=== PATIENT | female | born 1940 | race Caucasian/White ===

== ENCOUNTER 2020-11-06 09:38 | Outpatient (CLI) | payer OTHER, SELFPAY ==
[2020-11-06 17:01] LABS: Abs Immature Grans 0.41 10^3/uL (0.0-0.06); HCT 43.9 % (36.0-46.0); HGB 14.2 g/dL (11.2-15.7); MCH 30.1 pg (27.0-33.0); MCHC 32.3 % (32.0-36.0); Platelet Count 197 10^3/uL (130-400); RBC 4.72 10^6/uL (3.93-5.22); RDW 14.2 % (11.7-14.6); RDW-SD 48.1 fL
[2020-11-06 17:12] LABS: ALT 26 U/L (14-59); AST 15 U/L (15-37); Albumin 3.6 g/dL (3.4-5.0); Alkaline Phosphatase 63 U/L (46-116); Anion Gap 10.6 mmol/L (3-11); BUN 21 mg/dL (7-18); Bilirubin, Total 0.5 mg/dL (0.2-1.0); CO2 26.4 mmol/L (21.0-32.0); CREATININE 1.2 mg/dL (0.55-1.02); Calcium 9.2 mg/dL (8.5-10.1); Chloride 103 mmol/L (98-107); Estimated GFR 43.45 (mL/min/1.73m2); Glucose 169 mg/dL (74-106); Potassium 4.1 mmol/L (3.5-5.1); Sodium 140 mmol/L (136-145); Total Protein 6.7 g/dL (6.4-8.2)
[2020-11-06 17:25] LABS: Absolute Lymphocyte Count 68.79 10^3/uL (1.2-3.4); Absolute Monocyte Count 3.44 10^3/uL (0.1-0.8); Absolute Neutrophil Count 13.76 10^3/uL (1.2-6.7); Bands % 0
[2020-11-06 17:26] LABS: Nucleated RBC 0 %
[2020-11-06 17:35] LABS: WBC 85.99 10^3/uL (4.4-10.8)
[2020-11-06 17:36] LABS: Diff Comment Manual Differential; RBC Morphology Normal
[2020-11-13 11:20] LABS: DPYD Phenotype Normal metabolizer
[2020-11-13 11:23] LABS: Interpretation See Comments
[2020-11-13 11:27] LABS: Method See Comments
[2020-11-13 11:34] LABS: Disclaimer See Comments
== END 2020-11-06 09:39 ==
LOC: LBO 11-25 09:38
PROVIDERS: Visit Provider Internal Medicine Hematology & Oncology
DX: C25.9 Malignant neoplasm of pancreas, unspecified (principal)
CPT/HCPCS: 36415; 80053; 81232; 85025

== ENCOUNTER 2020-11-20 14:42 | Outpatient (REF) | payer OTHER, SELFPAY ==
[2020-11-20 11:01] LABS: HCT 41.4 % (36.0-46.0); HGB 13.3 g/dL (11.2-15.7); MCH 30.5 pg (27.0-33.0); MCHC 32.1 % (32.0-36.0); MPV 11.6 fL (8.0-11.0); Nucleated RBC 0 %; Platelet Count 253 10^3/uL (130-400); RBC 4.36 10^6/uL (3.93-5.22); RDW 14.1 % (11.7-14.6); RDW-SD 48.6 fL
[2020-11-20 11:06] LABS: WBC 97.34 10^3/uL (4.4-10.8)
[2020-11-20 11:10] LABS: ALT 26 U/L (14-59); AST 19 U/L (15-37); Albumin 3.6 g/dL (3.4-5.0); Alkaline Phosphatase 66 U/L (46-116); Anion Gap 8.7 mmol/L (3-11); BUN 18 mg/dL (7-18); Bilirubin, Total 0.4 mg/dL (0.2-1.0); CO2 28.3 mmol/L (21.0-32.0); CREATININE 1.1 mg/dL (0.55-1.02); Calcium 9.1 mg/dL (8.5-10.1); Chloride 103 mmol/L (98-107); Estimated GFR 48.04 (mL/min/1.73m2); Glucose 251 mg/dL (74-106); Potassium 3.6 mmol/L (3.5-5.1); Sodium 140 mmol/L (136-145); Total Protein 6.3 g/dL (6.4-8.2)
[2020-11-20 11:14] LABS: Absolute Lymphocyte Count 85.66 10^3/uL (1.2-3.4); Absolute Monocyte Count 1.95 10^3/uL (0.1-0.8); Absolute Neutrophil Count 9.73 10^3/uL (1.2-6.7)
[2020-11-20 11:15] LABS: Diff Comment Manual Differential; RBC Morphology Normal
--- OUTSIDE RECORDS SUMMARY | 2020-11-20 14:45 | XMS_ITS ---
:1940 Author Care Team Providers Name Role Phone CRISTOFER REYNA MD Primary Care Provider [phone] Allergies Code Code System Name Reaction Severity Status Onset NKDA ? Medications Name Status Start Date Stop Date ? ? acetaminophen 500 mg tablet Active ? Not available Take 2 tablets every 6 hours by oral route. amlodipine 10 mg tablet Completed ? 06/12/19 21 amlodipine 5 mg tablet Completed ? 1 Artificial Tears ([id number]) 1 %-0.2 %-0.2 % eye drops Active ? Not available As needed aspirin 81 mg chewable tablet Active ? No t available Chew 1 tablet every day by oral route. Calcium 500 Active ? Not available 1 tablet daily Fluzone High-Dose [id number] (PF) 180 Completed ? 06/12/2020 mcg/0.5 mL intramuscular syringe lancets 30 gauge Active ? Not available Use once daily to check blood sugars- Uses oneTouch Delica Lantus Solostar U-100 Insulin Active ? No t available start at 8 Units per night and increase by 2 units if the Am BS is >14- 2 days and a row latanoprost 0.005 % eye drops Active ? No t available lisinopril 40 mg tablet Active ? Not avai lable metoprolol succinate ER 25 mg Completed ? tablet,extended release 24 hr metoprolol succinate ER 50 mg tablet,extended release 24 hr Acti ve ? Not available Take 1 tablet every day by oral route. Miralax 17 gram oral powder packet Active ? Not available Take 1 packet twice a day by oral route. OneTouch Verio test strips Active ? Not a vailable Take 1 strip 3 times a day by miscell. route for 90 days. OneTouch Verio test strips Active ? Not a vailable Use 1 strip to check blood sugar daily oxycodone 5 mg tablet Completed ? 10/15/2020 Take 1 tablet every 8 hours by oral route as needed. Pen Needle 32 gauge x Active ? Not available Use once daily to inject insulin senna-docusate sodium 8.6 mg-50 mg tablet Active ? Not available Take 2 tablets twice a day by oral route. tamoxifen 20 mg tablet Completed ? 8 triamterene 37.5 mg-hydrochlorothiazide Active ? Not available 25 mg tablet vitamin E 200 unit capsule Completed ? 09/03 Take 1 capsule every day by oral route. Problems Name Status Onset Date Source ? Not for Resuscitation Active 09/03/2020 ? B-cell Chronic Lymphocytic Leukemia Active ? History Leukemia Active ? History Pure Hyperglyceridemia Active ? History Obesity Active ? History Thrombocytopenic Disorder Active ? Histor y Glaucoma Active ? History Essential Hypertension Active ? History Hypertensive Disorder Active ? History Diverticula of Intestine Active ? History Chronic Kidney Disease Stage 3 Active ? H istory Benign Mammary Dysplasia Active ? History Cyst of Ovary Active ? History Heart Murmur Active ? History Impaired Fasting Glycemia Active ? Histor y Abnormal Glucose Level Active ? History Active Immunization Active ? History Tear Film Insufficiency of Bilateral Active ? History Eyes Procedure by Method Active ? History Breast Lump Active ? History Procedures Date Name Performed by ? 06/10/2016 Colonoscopy Information not chris wilkerson Notes: 5 year colonoscopy plan due to family hx 10/23/2017 US, Pelvis, Transabdominal + [facility] (Internal) Transvaginal [address] [place] [id number] (Work Place) 04/30/2018 MAMMO, Screening, Tomosynthesis, [facility] Radiology (Internal) Bilateral [address] [place] [id number] (Work Place) 12/13/2018 MAMMO, Screening, Tomosynthesis, [facility] Radiology (Internal) Bilateral [address] [id number] (Work Place) 05/22/2020 CT, Neck, Soft Tissue, W/ Contrast [facility] Radiology (Internal) [address] [id number] (Work Place) 06/01/2020 US, Head + Neck, Soft Tissue [facility] Radiology (Internal) [address] [place] [id number] (Work Place) Results Lab Results Date Name Specimen Result Interpretation Description Value Range Status Address ? 11/17/2020 CMP, Serum or S High g/r 194 mg/dL 74-106 Fin al [place] Plasma mg/dL [facility] [address] ? ? S High Bun 18 mg/dL 7-17 Final [place] mg/dL [facility] ([facility] : [address] ? ? S ? Crea 0.90 0.52-1.04 Final [place] mg/dL mg/dL [facility] ([facility]) : [address] ? ? S ? Ca 9.6 mg/dL 8.4-10.2 Final [place] mg/dL [facility] ([facility]) : [address] ? ? S ? Na 141 137-145 Final [place] mmol/L mmol/L [facility] ([facility]) : [address] ? ? S ? K 3.9 3.5-5.1 Final [place] mmol/L mmol/L [facility] ([facility] : [address] ? ? S ? Cl 99 mmol/L 98-107 Final [place] mmol/L [facility] ([facility] : [address] ? ? S ? Tco2 30.0 22.0-30.0 Final [place] mmol/L mmol/L [facility] ([facility]) : [address] ? ? S ? Tp 6.6 g/dL 6.3-8.2 Final [place] g/dL [facility] ([facility] : [address] ? ? S ? Alb 4.3 g/dL 3.5-5.0 Final [place] g/dL [facility] ([facility] : [address] ? ? S ? Tbil 0.4 mg/dL 0.2-1.3 Final [place] mg/dL [facility] ([facility]) : [address] ? ? S ? Alp 62 U/L 38-126 Final [place] U/L [facility] : [address] ? ? S ? Alt 20 U/L 9-52 U/L Final [place] (Sgpt) [facility] L [facility] (Internal) : [address] ? ? S High Ast 85 U/L 14-36 U/L Final [place] (Sgot) [facility] (Internal) : [address] 08/31/2020 HbA1C BLD High Ha1C 7.3 % 4.0-6.0 % Final [facility] (Hemoglobin Count ry a1C), Blood Hospi per[facility] Lab (Internal) : [address] 05/22/2020 CBC W/ Auto BLD CRITICAL Wbc 25.9 5.0-10.0 Daria [facility] Diff HIGH 10*3/uL 10*3/uL [facility] (Internal) : [address] ? ? BLD ? Rbc 5.16 4.10-5.30 Final [place] 10*6/uL 10*6/uL [facility] L [facility] (Internal) : [address] ? ? BLD High Hgb 16.1 g/dL 12.0-16.0 Final Nort h g/dL [facility] L ab (Internal) : [address] ? ? BLD High Hct 48.1 % 37.0-47.0 Final [facility] L ab (Internal) : [address] ? ? BLD ? Mcv 93.2 fL 80.0-96.0 Final [facility] L [facility] (Internal) : [address] ? ? BLD ? Mch 31.2 pg 26.0-32.0 Final [facility] L ab (Internal) : [address] ? ? BLD ? Mchc 33.5 g/dL 31.0-35.0 Final Nort h g/dL [facility] L [facility] (Internal) : [address] ? ? BLD ? Rdw 13.0 % 11.5-14.5 Final [facility] L ab (Internal) : [address] ? ? BLD ? Plt 134 130-450 Final [place] 10*3/uL 10*3/uL [facility] (Internal) : [address] 05/22/2020 CMP, Serum or S High g/r 140 mg/dL 74-106 Fin al [place] Plasma mg/dL [facility] : [address] ? ? S High Bun 22 mg/dL 7-17 Final [place] mg/dL [facility] ([facility]) : [address] ? ? S High Crea 1.10 0.52-1.04 Final [place] mg/dL mg/dL [facility] (Internal) : [address] ? ? S ? Ca 9.6 mg/dL 8.4-10.2 Final [place] mg/dL [facility] ([facility]) : [address] ? ? S ? Na 138 137-145 Final [place] mmol/L mmol/L [facility] ([facility]) : [address] ? ? S ? K 3.9 3.5-5.1 Final [place] mmol/L mmol/L [facility] ([facility]) : [address] ? ? S ? Cl 100 98-107 Final [place] mmol/L mmol/L [facility] (Internal) : [address] ? ? S ? Tco2 30.0 22.0-30.0 Final [place] mmol/L mmol/L [facility] (Internal) : [address] ? ? S ? Tp 6.6 g/dL 6.3-8.2 Final [place] g/dL [facility] ([facility] : [address] ? ? S ? Alb 4.4 g/dL 3.5-5.0 Final [place] g/dL [facility] ([facility] : [address] ? ? S ? Tbil 0.3 mg/dL 0.2-1.3 Final [place] mg/dL [facility] ([facility] : [address] ? ? S ? Alp 47 U/L 38-126 Final [place] U/L [facility] : [address] ? ? S ? Alt 20 U/L 9-52 U/L Final [place] (Sgpt) [facility] : [address] ? ? S ? Ast 30 U/L 14-36 U/L Final [place] (Sgot) [facility] L ab (Internal) : [address] 05/22/2020 Lipid Panel, S High Chol 206 mg/dL 50-200 Daria l [place] Serum mg/dL [facility] L [facility] (Internal) : [address] ? ? S High Trig 303 mg/dL 10-150 Final [place] mg/dL [facility] L ab (Internal) : [address] ? ? S Low Hdl 39 mg/dL 40-60 Final [place] mg/dL [facility] (Internal) : [address] ? ? S ? Ldl 106 mg/dL 0-130 Final [place] mg/dL [facility] L [facility] (Internal) : [address] 05/22/2020 Ldh, Serum or S ? Ldh 517 U/L 313-618 Daria l [place] Plasma U/L [facility] L ab (Internal) : [address] 05/22/2020 TSH, Serum or S ? Tsh 2.21 0.47-4.68 Fin al [place] Plasma u[IU]/mL u[IU]/mL [facility] L ab (Internal) : [address] 05/22/2020 Differential, BLD Low Polys 19 % 40-75 % Final [facility], Blood [facility] L ab (Internal) : [address] ? ? BLD ? Bands 0 % 0-5 % Final [facility] L ab (Internal) : [address] ? ? BLD High Lymphs 70 % 20-50 % Final [facility] L ab (Internal) : [address] ? ? BLD ? [place] 5 % 2-10 % Final [facility] L [facility] (Internal) : [address] ? ? BLD ? Eos 3 % 0-6 % Final [facility] L [facility] (Internal) : [address] ? ? BLD ? Baso 1 % 0-1 % Final [facility] L [facility] (Internal) : [address] ? ? BLD ? Atyp 1 % ? Final [place] Lymph [facility] (Internal) : [address] ? ? BLD High Young 1 % 0-0 % Final [place] Forms [facility] L ab (Internal) : [address] ? ? BLD ABNORMAL Plts, low adequate Final [place] Est. [facility] L [facility] (Internal) : [address] ? ? BLD ? RBC normal normal Final [place] Morphology [facility] L ab (Internal) : [address] 05/22/2020 Neutrophil BLD ? Anc-manua 4.92 ? Final [place] Count, l 10*3/uL [facility] Lab (Anc), Blood (Int ernal): [address] 05/22/2020 Nlr-manual BLD ? Nlr - 0.27 0.00-3.20 Final [place] Manual [facility] L [facility] (Internal) : [address] 01/02/2020 Lipid Panel, S High Chol 217 mg/dL 50-200 Daria l [place] Serum mg/dL [facility] (Internal) : [address] ? ? S High Trig 254 mg/dL 10-150 Final [place] mg/dL [facility] L ab (Internal) : [address] ? ? S ? Hdl 43 mg/dL 40-60 Final [place] mg/dL [facility] (Internal) : [address] ? ? S ? Ldl 123 mg/dL 0-130 Final [place] mg/dL [facility] (Internal) : [address] 01/02/2020 CMP, Serum or S High g/r 154 mg/dL 74-106 Fin al [place] Plasma mg/dL [facility] (Internal) : [address] ? ? S High Bun 21 mg/dL 7-17 Final [place] mg/dL [facility] (Internal) : [address] ? ? S ? Crea 1.00 0.52-1.04 Final [place] mg/dL mg/dL [facility] (Internal) : [address] ? ? S ? Ca 9.7 mg/dL 8.4-10.2 Final [place] mg/dL [facility] L ab (Internal) : [address] ? ? S ? Na 139 137-145 Final [place] mmol/L mmol/L [facility] ([facility] : [address] ? ? S ? K 4.2 3.5-5.1 Final [place] mmol/L mmol/L [facility] ([facility] : [address] ? ? S ? Cl 101 98-107 Final [place] mmol/L mmol/L [facility] (Internal) : [address] ? ? S ? Tco2 28.0 22.0-30.0 Final [place] mmol/L mmol/L [facility] (Internal) : [address] ? ? S ? Tp 6.7 g/dL 6.3-8.2 Final [place] g/dL [facility] (Internal) : [address] ? ? S ? Alb 4.2 g/dL 3.5-5.0 Final [place] g/dL [facility] (Internal[facility] : [address] ? ? S ? Tbil 0.6 mg/dL 0.2-1.3 Final [place] mg/dL [facility] (Internal) : [address] ? ? S ? Alp 44 U/L 38-126 Final [place] U/L [facility] ([facility] : [address] ? ? S ? Alt 21 U/L 9-52 U/L Final [place] (Sgpt) [facility] (Internal[facility] : [address] ? ? S ? Ast 27 U/L 14-36 U/L Final [place] (Sgot) [facility] (Internal) : [address] 01/02/2020 CBC W/ Auto BLD High Wbc 13.3 5.0-10.0 Final [place] Diff 10*3/uL 10*3/uL [facility] ([facility]) : [address] ? ? BLD High Rbc 5.31 4.10-5.30 Final [place] 10*6/uL 10*6/uL [facility] (Internal) : [address] ? ? BLD High Hgb 16.4 g/dL 12.0-16.0 Final Nort h g/dL [facility] L ab (Internal) : [address] ? ? BLD High Hct 48.4 % 37.0-47.0 Final [facility] L ab (Internal) : [address] ? ? BLD ? Mcv 91.1 fL 80.0-96.0 Final [facility] L ab (Internal) : [address] ? ? BLD ? Mch 30.9 pg 26.0-32.[address] [facility] L ab (Internal) : [address] ? ? BLD ? Mchc 33.9 g/dL 31.0-35.0 Final Nort h g/dL [facility] L ab (Internal) : [address] ? ? BLD ? Rdw 12.4 % 11.5-14.5 Final [facility] L ab (Internal) : [address] ? ? BLD ? Plt 140 130-450 Final [place] 10*3/uL 10*3/uL [facility] L ab (Internal) : [address] 01/02/2020 TSH, Serum or S ? Tsh 2.86 0.47-4.68 Fin [facility] Plasma u[IU]/mL u[IU]/mL [facility] L ab (Internal) : [address] 01/02/2020 Differential, BLD Low Polys 37 % 40-75 % Final [facility] Blood [facility] L ab (Internal) : [address] ? ? BLD ? Bands 0 % 0-5 % Final [facility] L ab (Internal) : [address] ? ? BLD ? Lymphs 46 % 20-50 % Final [facility] L ab (Internal) : [address] ? ? BLD ? [place] 4 % 2-10 % Final [facility] L ab (Internal) : [address] ? ? BLD ? Eos 0 % 0-6 % Final [facility] L ab (Internal) : [address] ? ? BLD High Baso 2 % 0-1 % Final [facility] : [address] ? ? BLD ? Atyp 11 % ? Final [facility] L ab (Internal) : [address] ? ? BLD ? Plts, adequate adequate Final [place] Est. [facility] L ab (Internal) : [address] ? ? BLD ? RBC normal normal Final [facility] L ab (Internal) : [address] ? ? BLD ? Teardrop rare ? Final [facility] L ab (Internal) : [address] 01/02/2020 Neutrophil BLD ? Anc-manua 4.94 ? Final [place] Count, l 10*3/uL [facility] Lab (Anc), Blood (Int ernal): [address] 01/02/2020 Nlr-manual BLD ? Nlr - 0.80 0.00-3.20 Final [place] Manual [facility] L ab (Internal) : [address] 01/22/2019 T4, Free, S - Ft4 0.88 0.78-2.19 Final [place] Serum NG/dL NG/dL [facility] L ab (Internal) : [address] 01/22/2019 TSH, Serum or S - Tsh 2.24 0.47-4.68 Fin al [place] Plasma u[IU]/mL u[IU]/mL [facility] L ab (Internal) : [address] 01/22/2019 Ldh, Serum or S - Ldh 482 U/L 313-618 Daria l [place] Plasma U/L [facility] L ab (Internal) : [address] 01/22/2019 CMP, Serum or S High g/r 129 mg/dL 74-106 Fin al [place] Plasma mg/dL [facility] L ab (Internal) : [address] ? ? S High Bun 20 mg/dL 7-17 Final [place] mg/dL [facility] L ab (Internal) : [address] ? ? S - Crea 0.90 0.52-1.04 Final [place] mg/dL mg/dL [facility] L ab (Internal) : [address] ? ? S - Ca 9.6 mg/dL 8.4-10.2 Final [place] mg/dL [facility] ([facility] : [address] ? ? S - Na 139 137-145 Final [place] mmol/L mmol/L [facility] (Internal) : [address] ? ? S - K 3.7 3.5-5.1 Final [place] mmol/L mmol/L [facility] (Internal) : [address] ? ? S - Cl 100 98-107 Final [place] mmol/L mmol/L [facility] (Internal) : [address] ? ? S - Tco2 29.0 22.0-30.0 Final [place] mmol/L mmol/L [facility] (Internal) : [address] ? ? S - Tp 6.8 g/dL 6.3-8.2 Final [place] g/dL [facility] (Internal) : [address] ? ? S - Alb 4.2 g/dL 3.5-5.0 Final [place] g/dL [facility] (Internal) : [address] ? ? S - Tbil 0.4 mg/dL 0.2-1.3 Final [place] mg/dL [facility] (Internal) : [address] ? ? S - Alp 52 U/L 38-126 Final [place] U/L [facility] (Internal) : [address] ? ? S - Alt 25 U/L 9-52 U/L Final [place] (Sgpt) [facility] (Internal[facility] : [address] ? ? S - Ast 24 U/L 14-36 U/L Final [place] (Sgot) [facility] (Internal) : [address] 01/22/2019 CBC W/ Auto BLD - Wbc 7.1 5.0-10.0 Final [place] Diff 10*3/uL 10*3/uL [facility] (Internal) : [address] ? ? BLD - Rbc 5.07 4.10-5.30 Final [place] 10*6/uL 10*6/uL [facility] (Internal) : [address] ? ? BLD - Hgb 15.8 g/dL 12.0-16.0 Final Nort h g/dL [facility] L ab (Internal) : [address] ? ? BLD - Hct 45.9 % 37.0-47.0 Final [facility] L ab (Internal) : [address] ? ? BLD - Mcv 90.5 fL 80.0-96.0 Final [facility] L ab (Internal) : [address] ? ? BLD - Mch 31.2 pg 26.0-32.0 Final [place] pg [facility] L ab (Internal) : [address] ? ? BLD - Mchc 34.4 g/dL 31.0-35.0 Final Nort h g/dL [facility] L ab (Internal) : [address] ? ? BLD - Rdw 12.7 % 11.5-14.5 Final [facility] L ab (Internal) : [address] ? ? BLD - Plt 138 130-450 Final [place] 10*3/uL 10*3/uL [facility] (Internal) : [address] ? ? BLD - Anc 3.70 ? Final [place] 10*3/uL [facility] L ab (Internal) : [address] ? ? BLD - Neutro 52.1 % 40.0-75.0 Final [facility] L ab (Internal) : [address] ? ? BLD - Lymph 32.8 % 20.0-50.0 Final [facility] L ab (Internal) : [address] ? ? BLD High [place] 11.3 % 2.0-10.0 Final [facility] L ab (Internal) : [address] ? ? BLD - Eos 1.8 % 1.0-6.0 % Final [facility] L ab (Internal) : [address] ? ? BLD - Baso 0.7 % 0.0-1.0 % Final [facility] L ab (Internal) : [address] ? ? BLD High Ig 1.3 % 0.0-0.9 % Final [facility] (Internal) : [address] 09/18/2018 CMP, Serum or S - g/r 93 mg/dL 74-106 Daria l [place] Plasma mg/dL [facility] : [address] ? ? S - Bun 15 mg/dL 7-17 Final [place] mg/dL [facility] (Internal) : [address] ? ? S - Crea 0.80 0.52-1.04 Final [place] mg/dL mg/dL [facility] (Internal) : [address] ? ? S - Ca 9.7 mg/dL 8.4-10.2 Final [place] mg/dL [facility] L [facility] (Internal) : [address] ? ? S - Na 138 137-145 Final [place] mmol/L mmol/L [facility] (Internal) : [address] ? ? S - K 3.7 3.5-5.1 Final [place] mmol/L mmol/L [facility] (Internal) : [address] ? ? S - Cl 98 mmol/L 98-107 Final [place] mmol/L [facility] L [facility] (Internal) : [address] ? ? S - Tco2 30.0 22.0-30.0 Final [place] mmol/L mmol/L [facility] (Internal) : [address] ? ? S - Tp 6.9 g/dL 6.3-8.2 Final [place] g/dL [facility] (Internal) : [address] ? ? S - Alb 4.3 g/dL 3.5-5.0 Final [place] g/dL [facility] (Internal) : [address] ? ? S - Tbil 0.5 mg/dL 0.2-1.3 Final [place] mg/dL [facility] L [facility] (Internal) : [address] ? ? S - Alp 49 U/L 38-126 Final [place] U/L [facility] (Internal) : [address] ? ? S - Alt 19 U/L 9-52 U/L Final [place] (Sgpt) [facility] (Internal[facility] : [address] ? ? S - Ast 27 U/L 14-36 U/L Final [place] (Sgot) [facility] L [facility] (Internal) : [address] 09/18/2018 CBC W/ Auto BLD - Wbc 7.0 5.0-10.0 Final [place] Diff 10*3/uL 10*3/uL [facility] (Internal) : [address] ? ? BLD - Rbc 5.19 4.10-5.30 Final [place] 10*6/uL 10*6/uL [facility] (Internal) : [address] ? ? BLD High Hgb 16.2 g/dL 12.0-16.0 Final Nort [facility] g/dL [facility] (Internal) : [address] ? ? BLD High Hct 47.2 % 37.0-47.0 Final [facility] L ab (Internal) : [address] gaurav ? ? BLD - Mcv 90.9 fL 80.0-96.0 Final [facility] L ab (Internal) : [address] ? ? BLD - Mch 31.2 pg 26.0-32.0 Final [facility] L ab (Internal) : [address] ? ? BLD - Mchc 34.3 g/dL 31.0-35.0 Final Nort h g/dL [facility] L ab (Internal) : [address] ? ? BLD - Rdw 12.4 % 11.5-14.5 Final [facility] L ab (Internal) : [address] ? ? BLD - Plt 146 130-450 Final [place] 10*3/uL 10*3/uL [facility] L [facility] (Internal) : [address] ? ? BLD - Anc 3.49 ? Final [place] 10*3/uL [facility] L ab (Internal) : [address] ? ? BLD - Neutro 50.3 % 40.0-75.0 Final [place] % [facility] L ab (Internal) : [address] ? ? BLD - Lymph 35.7 % 20.0-50.0 Final [place] % [facility] L ab (Internal) : [address] ? ? BLD High [place] 10.6 % 2.0-10.0 Final [facility] L ab (Internal) : [address] ? ? BLD - Eos 2.0 % 1.0-6.0 % Final [facility] L ab (Internal) : [address] ? ? BLD - Baso 0.7 % 0.0-1.0 % Final [facility] L ab (Internal) : [address] ? ? BLD - Ig 0.7 % 0.0-0.9 % Final [facility] L ab (Internal) : [address] 07/17/2018 Immunoglobuli S Low Igg 224 mg/dL [id number] F inal [place] ns mg/dL [facility] Iga+igg+igm, Hosp ital Lab Quantitative, (In ternal): Serum [address] ? ? S Low Iga 41 mg/dL 85-499 Final [place] mg/dL [facility] L ab (Internal) : [address] ? ? S Low Igm <12 mg/dL 35-242 Final [place] mg/dL [facility] L ab (Internal) : [address] 07/17/2018 Ldh, Serum or S - Ldh 481 U/L 313-618 Daria l [place] Plasma U/L [facility] L ab (Internal) : [address] 07/17/2018 CMP, Serum or S High g/r 138 mg/dL 74-106 Fin al [place] Plasma mg/dL [facility] L ab (Internal) : [address] ? ? S High Bun 21 mg/dL 7-17 Final [place] mg/dL [facility] L ab (Internal) : [address] ? ? S - Crea 0.90 0.52-1.04 Final [place] mg/dL mg/dL [facility] (Internal) : [address] ? ? S - Ca 9.4 mg/dL 8.4-10.2 Final [place] mg/dL [facility] (Internal) : [address] ? ? S - Na 139 137-145 Final [place] mmol/L mmol/L [facility] (Internal) : [address] ? ? S - K 3.9 3.5-5.1 Final [place] mmol/L mmol/L [facility] (Internal) : [address] ? ? S - Cl 100 98-107 Final [place] mmol/L mmol/L [facility] (Internal) : [address] ? ? S - Tco2 30.0 22.0-30.0 Final [place] mmol/L mmol/L [facility] (Internal) : [address] ? ? S - Tp 6.4 g/dL 6.3-8.2 Final [place] g/dL [facility] (Internal) : [address] ? ? S - Alb 4.0 g/dL 3.5-5.0 Final [place] g[facility] : [address] ? ? S - Tbil 0.6 mg/dL 0.2-1.3 Final [place] mg/dL [facility] : [address] ? ? S - Alp 43 U/L 38-126 Final [place] U/L [facility] : [address] ? ? S - Alt 25 U/L 9-52 U/L Final [place] (Sgpt) [facility] ([facility] : [address] ? ? S - Ast 26 U/L 14-36 U/L Final [place] (Sgot) [facility] ([facility] : [address] 07/17/2018 CBC W/ Auto BLD - Wbc 6.2 5.0-10.0 Final [place] Diff 10*3/uL 10*3/uL [facility] ([facility] : [address] ? ? BLD - Rbc 4.88 4.10-5.30 Final [place] 10*6/uL 10*6/uL [facility] L ab (Internal) : [address] ? ? BLD - Hgb 15.4 g/dL 12.0-16.0 Final Nort h g/dL [facility] L [facility] (Internal) : [address] ? ? BLD - Hct 45.4 % 37.0-47.0 Final [facility] L ab (Internal) : [address] ? ? BLD - Mcv 93.0 fL 80.0-96.0 Final [facility] L [facility] (Internal) : [address] ? ? BLD - Mch 31.6 pg 26.0-32.0 Final [facility] L ab (Internal) : [address] ? ? BLD - Mchc 33.9 g/dL 31.0-35.0 Final Nort h g/dL [facility] L [facility] (Internal) : [address] ? ? BLD - Rdw 12.6 % 11.5-14.5 Final [facility] L ab (Internal) : [address] ? ? BLD - Plt 133 130-450 Final [place] 10*3/uL 10*3/uL [facility] L ab (Internal) : [address] ? ? BLD - Anc 3.30 ? Final [place] 10*3/uL [facility] L [facility] (Internal) : [address] ? ? BLD - Neutro 53.5 % 40.0-75.0 Final [facility] L [facility] (Internal) : [address] ? ? BLD - Lymph 30.7 % 20.0-50.0 Final [facility] L [facility] (Internal) : [address] ? ? BLD High [place] 10.9 % 2.0-10.0 Final [facility] L [facility] (Internal) : [address] ? ? BLD - Eos 3.1 % 1.0-6.0 % Final [facility] L ab (Internal) : [address] ? ? BLD - Baso 1.0 % 0.0-1.0 % Final [facility] L ab (Internal) : [address] ? ? BLD - Ig 0.8 % 0.0-0.9 % Final [facility] L [facility] (Internal) : [address] 01/01/2018 Ldh, Serum or S - Ldh 477 U/L 313-618 Daria l [place] Plasma U/L [facility] : [address] 01/01/2018 CMP, Serum or S High g/r 113 mg/dL 74-106 Fin al [place] Plasma mg/dL [facility] ([facility]) : [address] ? ? S High Bun 19 mg/dL 7-17 Final [place] mg/dL [facility] L [facility] (Internal) : [address] ? ? S High Crea 1.20 0.52-1.04 Final [place] mg/dL mg/dL [facility] ([facility] : [address] ? ? S - Ca 9.3 mg/dL 8.4-10.2 Final [place] mg/dL [facility] : [address] ? ? S - Na 140 137-145 Final [place] mmol/L mmol/L [facility] ([facility]) : [address] ? ? S - K 4.0 3.5-5.1 Final [place] mmol/L mmol/L [facility] ([facility] : [address] ? ? S - Cl 102 98-107 Final [place] mmol/L mmol/L [facility] ([facility]) : [address] ? ? S - Tco2 29.0 22.0-30.0 Final [place] mmol/L mmol/L [facility] ([facility]) : [address] ? ? S Low Tp 6.2 g/dL 6.3-8.2 Final [place] g/dL [facility] : [address] ? ? S - Alb 3.9 g/dL 3.5-5.0 Final [place] g/dL [facility] : [address] ? ? S - Tbil 0.4 mg/dL 0.2-1.3 Final [place] mg/dL [facility] L ab (Internal) : [address] ? ? S - Alp 41 U/L 38-126 Final [place] U/L [facility] L ab (Internal) : [address] ? ? S - Alt 28 U/L 9-52 U/L Final [place] (Sgpt) [facility] (Internal) : [address] ? ? S - Ast 22 U/L 14-36 U/L Final [place] (Sgot) [facility] (Internal) : [address] 01/01/2018 CBC W/ Auto BLD - Wbc 5.4 5.0-10.0 Final [place] Diff 10*3/uL 10*3/uL [facility] ([facility] : [address] ? ? BLD - Rbc 4.77 4.10-5.30 Final [place] 10*6/uL 10*6/uL [facility] ([facility] : [address] ? ? BLD - Hgb 15.0 g/dL 12.0-16.0 Final Nort h g/dL [facility] L ab (Internal) : [address] ? ? BLD - Hct 44.3 % 37.0-47.0 Final [facility] L ab (Internal) : [address] ? ? BLD - Mcv 92.9 fL 80.0-96.0 Final [facility] L [facility] (Internal) : [address] ? ? BLD - Mch 31.4 pg 26.0-32.0 Final [place] pg [facility] L ab (Internal) : [address] ? ? BLD - Mchc 33.9 g/dL 31.0-35.0 Final Nort h g/dL [facility] L [facility] (Internal) : [address] ? ? BLD - Rdw 12.3 % 11.5-14.5 Final [facility] L ab (Internal) : [address] ? ? BLD Low Plt 124 130-450 Final [place] 10*3/uL 10*3/uL [facility] L ab (Internal) : [address] ? ? BLD - Anc 2.97 ? Final [place] 10*3/uL [facility] L ab (Internal) : [address] ? ? BLD - Neutro 55.3 % 40.0-75.0 Final [facility] L ab (Internal) : [address] ? ? BLD - Lymph 29.7 % 20.0-50.0 Final [facility] L ab (Internal) : [address] ? ? BLD High [place] 11.4 % 2.0-10.0 Final [facility] L ab (Internal) : [address] ? ? BLD - Eos 2.4 % 1.0-6.0 % Final [facility] L ab (Internal) : [address] ? ? BLD - Baso 0.6 % 0.0-1.0 % Final [facility] L ab (Internal) : [address] ? ? BLD - Ig 0.6 % 0.0-0.9 % Final [facility] L ab (Internal) : [address] 12/28/2017 HbA1C BLD - Ha1C 5.9 % 4.0-6.0 % Final [place] th (Hemoglobin Count ry a1C), Blood Hospi perla Lab (Internal) : [address] 12/13/2017 Pathology TISS - Report results ? Final N orth Study below [facility] L ab (Internal) : [address] 10/26/2017 CBC W/ Auto BLD - Wbc 6.0 5.0-10.0 Final [place] Diff 10*3/uL 10*3/uL [facility] L ab (Internal) : [address] ? ? BLD - Rbc 4.55 4.10-5.30 Final [place] 10*6/uL 10*6/uL [facility] L ab (Internal) : [address] ? ? BLD - Hgb 14.4 g/dL 12.0-16.0 Final Nort h g/dL [facility] L ab (Internal) : [address] ? ? BLD - Hct 42.1 % 37.0-47.0 Final [facility] L ab (Internal) : [address] ? ? BLD - Mcv 92.5 fL 80.0-96.0 Final [facility] L ab (Internal) : [address] ? ? BLD - Mch 31.6 pg 26.0-32.0 Final [place] pg [facility] L ab (Internal) : [address] ? ? BLD - Mchc 34.2 g/dL 31.0-35.0 Final Nort h g/dL [facility] L ab (Internal) : [address] ? ? BLD - Rdw 12.8 % 11.5-14.5 Final [facility] L ab (Internal) : [address] ? ? BLD Low Plt 124 130-450 Final [place] 10*3/uL 10*3/uL [facility] L ab (Internal) : [address] ? ? BLD - Anc 3.51 ? Final [place] 10*3/uL [facility] L ab (Internal) : [address] ? ? BLD - Neutro 58.5 % 40.0-75.0 Final [facility] L ab (Internal) : [address] ? ? BLD - Lymph 27.0 % 20.0-50.0 Final [facility] L ab (Internal) : [address] ? ? BLD High [place] 10.5 % 2.0-10.0 Final [facility] L ab (Internal) : [address] ? ? BLD - Eos 2.8 % 1.0-6.0 % Final [facility] L ab (Internal) : [address] ? ? BLD - Baso 0.7 % 0.0-1.0 % Final [facility] L ab (Internal) : [address] ? ? BLD - Ig 0.5 % 0.0-0.9 % Final [facility] L ab (Internal) : [address] 10/26/2017 CMP, Serum or S High g/r 147 mg/dL 74-106 Fin al [place] Plasma mg/dL [facility] ([facility] : [address] ? ? S - Bun 16 mg/dL 7-17 Final [place] mg/dL [facility] (Internal) : [address] ? ? S - Crea 1.00 0.52-1.04 Final [place] mg/dL mg/dL [facility] (Internal) : [address] ? ? S - Ca 8.8 mg/dL 8.4-10.2 Final [place] mg/dL [facility] (Internal) : [address] ? ? S - Na 140 137-145 Final [place] mmol/L mmol/L [facility] (Internal) : [address] ? ? S - K 3.7 3.5-5.1 Final [place] mmol/L mmol/L [facility] (Internal) : [address] ? ? S - Cl 104 98-107 Final [place] mmol/L mmol/L [facility] (Internal) : [address] ? ? S - Tco2 26.0 22.0-30.0 Final [place] mmol/L mmol/L [facility] (Internal) : [address] ? ? S Low Tp 5.9 g/dL 6.3-8.2 Final [place] g/dL [facility] (Internal) : [address] ? ? S - Alb 3.9 g/dL 3.5-5.0 Final [place] g/dL [facility] (Internal) : [address] ? ? S - Tbil 0.4 mg/dL 0.2-1.3 Final [place] mg/dL [facility] (Internal) : [address] ? ? S - Alp 41 U/L 38-126 Final [place] U/L [facility] (Internal) : [address] ? ? S - Alt 32 U/L 9-52 U/L Final [place] (Sgpt) [facility] ([facility] : [address] ? ? S - Ast 19 U/L 14-36 U/L Final [place] (Sgot) [facility] L ab (Internal) : [address] 06/20/2017 Venipuncture BLD ? Venpn* ? ? Final [facility] L ab (Internal) : [address] 06/20/2017 CRP, High S High Rcrp 0.33 0.10-0.30 Final [place] Sensitivity, mg/dL mg/dL Coun try Serum or Hospital Lab Plasma (Internal) : [address] 06/20/2017 Lipid Panel, S ? Chol 171 mg/dL 50-200 Daria l [place] Serum mg/dL [facility] L ab (Internal) : [address] ? ? S High Trig 198 mg/dL 10-150 Final [place] mg/dL [facility] L ab (Internal) : [address] ? ? S ? Hdl 53 mg/dL 40-60 Final [place] mg/dL [facility] L ab (Internal) : [address] ? ? S ? Ldl 78 mg/dL 0-130 Final [place] mg/dL [facility] L ab (Internal) : [address] 06/20/2017 Immunoglobuli S Low Igg 241 mg/dL [id number] F inal [place] ns mg/dL [facility] Iga+igg+igm, Hosp ital Lab Quantitative, (In ternal): Serum [address] ? ? S Low Iga 40 mg/dL 82-453 Final [place] mg/dL [facility] L ab (Internal) : [address] ? ? S Low Igm 5 mg/dL 46-304 Final [place] mg/dL [facility] L ab (Internal) : [address] 06/20/2017 Ldh, Serum or S ? Ldh 431 U/L 313-618 Daria l [place] Plasma U/L [facility] L ab (Internal) : [address] 06/20/2017 CBC W/ Auto BLD ? Wbc 5.7 5.0-10.0 Final [place] Diff 10*3/uL 10*3/uL [facility] L ab (Internal) : [address] ? ? BLD ? Rbc 4.79 4.10-5.30 Final [place] 10*6/uL 10*6/uL [facility] (Internal) : [address] ? ? BLD ? Hgb 15.3 g/dL 12.0-16.0 Final Nort h g/dL [facility] L ab (Internal) : [address] ? ? BLD ? Hct 44.1 % 37.0-47.0 Final [facility] L ab (Internal) : [address] ? ? BLD ? Mcv 92.1 fL 80.0-96.0 Final [facility] L ab (Internal) : [address] ? ? BLD ? Mch 31.9 pg 26.0-32.0 Final [facility] L ab (Internal) : [address] ? ? BLD ? Mchc 34.7 g/dL 31.0-35.0 Final Nort h g/dL [facility] L ab (Internal) : [address] ? ? BLD ? Rdw 12.5 % 11.5-14.5 Final [facility] L ab (Internal) : [address] ? ? BLD Low Plt 122 130-450 Final [place] 10*3/uL 10*3/uL [facility] L ab (Internal) : [address] ? ? BLD ? Anc 3.47 ? Final [place] 10*3/uL [facility] L ab (Internal) : [address] ? ? BLD ? Neutro 60.8 % 40.0-75.0 Final [facility] L ab (Internal) : [address] ? ? BLD ? Lymph 25.9 % 20.0-50.0 Final [facility] L ab (Internal) : [address] ? ? BLD High [place] 10.8 % 2.0-10.0 Final [facility] L ab (Internal) : [address] ? ? BLD ? Eos 1.7 % 1.0-6.0 % Final [facility] L ab (Internal) : [address] ? ? BLD ? Baso 0.5 % 0.0-1.0 % Final [facility] L ab (Internal) : [address] ? ? BLD ? Ig 0.3 % 0.0-0.9 % Final [facility] L ab (Internal) : [address] 06/20/2017 CMP, Serum or S High g/r 117 mg/dL 74-106 Fin al [place] Plasma mg/dL [facility] ([facility] : [address] ? ? S ? Bun 17 mg/dL 7-17 Final [place] mg/dL [facility] (Internal) : [address] ? ? S ? Crea 0.90 0.52-1.04 Final [place] mg/dL mg/dL [facility] (Internal) : [address] ? ? S ? Ca 9.1 mg/dL 8.4-10.2 Final [place] mg/dL [facility] (Internal) : [address] ? ? S ? Na 142 137-145 Final [place] mmol/L mmol/L [facility] (Internal) : [address] ? ? S ? K 3.8 3.5-5.1 Final [place] mmol/L mmol/L [facility] (Internal) : [address] ? ? S ? Cl 103 98-107 Final [place] mmol/L mmol/L [facility] (Internal) : [address] ? ? S ? Tco2 27.0 22.0-30.0 Final [place] mmol/L mmol/L [facility] (Internal) : [address] ? ? S Low Tp 6.2 g/dL 6.3-8.2 Final [place] g/dL [facility] (Internal) : [address] ? ? S ? Alb 3.9 g/dL 3.5-5.0 Final [place] g/dL [facility] (Internal) : [address] ? ? S ? Tbil 0.3 mg/dL 0.2-1.3 Final [place] mg/dL [facility] (Internal) : [address] ? ? S ? Alp 40 U/L 38-126 Final [place] U/L [facility] L ab (Internal) : [address] ? ? S ? Alt 36 U/L 9-52 U/L Final [place] (Sgpt) [facility] L ab (Internal) : [address] ? ? S ? Ast 25 U/L 14-36 U/L Final [place] (Sgot) [facility] L ab (Internal) : [address] 03/17/2017 Venipuncture BLD ? Venpn* ? ? Final [facility] L ab (Internal) : [address] 03/17/2017 Neutrophil BLD ? Anc-manua 2.61 ? Final [place] Count, l 10*3/uL [facility] Lab (Anc), Blood (Int ernal): [address] 03/17/2017 Differential, BLD ? Polys 53 % 40-75 % Final [facility], Blood [facility] L ab (Internal) : [address] ? ? BLD ? Bands 0 % 0-5 % Final [facility] L ab (Internal) : [address] ? ? BLD ? Lymphs 30 % 20-50 % Final [facility] L ab (Internal) : [address] ? ? BLD ? [place] 10 % 2-10 % Final [facility] L ab (Internal) : [address] ? ? BLD ? Eos 1 % 0-6 % Final [facility] L ab (Internal) : [address] ? ? BLD ? Baso 1 % 0-1 % Final [facility] L ab (Internal) : [address] ? ? BLD ? Atyp 5 % ? Final [facility] L ab (Internal) : [address] ? ? BLD ABNORMAL Plts, low adequate Final [facility] L ab (Internal) : [address] ? ? BLD ? RBC normal normal Final [facility] L ab (Internal) : [address] 03/17/2017 CBC W/ Auto BLD Low Wbc 4.9 5.0-10.0 Final [place] Diff 10*3/uL 10*3/uL [facility] L ab (Internal) : [address] ? ? BLD ? Rbc 4.73 4.10-5.30 Final [place] 10*6/uL 10*6/uL [facility] (Internal) : [address] ? ? BLD ? Hgb 15.0 g/dL 12.0-16.0 Final Nort h g/dL [facility] L ab (Internal) : [address] ? ? BLD ? Hct 43.1 % 37.0-47.0 Final [facility] L ab (Internal) : [address] ? ? BLD ? Mcv 91.1 fL 80.0-96.0 Final [place] fL [facility] L ab (Internal) : [address] ? ? BLD ? Mch 31.7 pg 26.0-32.0 Final [place] pg [facility] L ab (Internal) : [address] ? ? BLD ? Mchc 34.8 g/dL 31.0-35.0 Final Nort h g/dL [facility] L ab (Internal) : [address] ? ? BLD ? Rdw 12.2 % 11.5-14.5 Final [facility] L ab (Internal) : [address] ? ? BLD Low Plt 127 130-450 Final [place] 10*3/uL 10*3/uL [facility] L ab (Internal) : [address] 03/17/2017 CMP, Serum or S High g/r 123 mg/dL 74-106 Fin al [place] Plasma mg/dL [facility] ([facility] : [address] ? ? S High Bun 19 mg/dL 7-17 Final [place] mg/dL [facility] L ab (Internal) : [address] ? ? S ? Crea 0.80 0.52-1.04 Final [place] mg/dL mg/dL [facility] L ab (Internal) : [address] ? ? S ? Ca 9.0 mg/dL 8.4-10.2 Final [place] mg/dL [facility] L ab (Internal) : [address] ? ? S ? Na 139 137-145 Final [place] mmol/L mmol/L [facility] L ab (Internal) : [address] ? ? S ? K 3.8 3.5-5.1 Final [place] mmol/L mmol/L [facility] L ab (Internal) : [address] ? ? S ? Cl 101 98-107 Final [place] mmol/L mmol/L [facility] L ab (Internal) : [address] ? ? S ? Tco2 27.0 22.0-30.0 Final [place] mmol/L mmol/L [facility] L ab (Internal) : [address] ? ? S Low Tp 6.1 g/dL 6.3-8.2 Final [place] g/dL [facility] L ab (Internal) : [address] ? ? S ? Alb 3.9 g/dL 3.5-5.0 Final [place] g/dL [facility] L ab (Internal) : [address] ? ? S ? Tbil 0.4 mg/dL 0.2-1.3 Final [place] mg/dL [facility] L ab (Internal) : [address] ? ? S ? Alp 40 U/L 38-126 Final [place] U/L [facility] L ab (Internal) : [address] ? ? S ? Alt 31 U/L 9-52 U/L Final [place] (Sgpt) [facility] L ab (Internal) : [address] ? ? S ? Ast 19 U/L 14-36 U/L Final [place] (Sgot) [facility] L ab (Internal) : [address] 03/17/2017 Ldh, Serum or S ? Ldh 468 U/L [id number] Daria l [place] Plasma U/L [facility] L ab (Internal) : [address] 02/25/2017 Venipuncture BLD ? Venpn* ? ? Final [facility] L ab (Internal) : [address] 02/25/2017 Prothrombin BLD ? Pt 10.0 S 9.1-11.7 Final [place] Time S [facility] L ab (Internal) : [address] ? ? BLD ? Inr 1.0 ? Final [facility] L ab (Internal) : [address] 02/25/2017 CBC W/ Auto BLD ? Wbc 5.3 5.0-10.0 Final [place] Diff 10*3/uL 10*3/uL [facility] L ab (Internal) : [address] ? ? BLD ? Rbc 4.91 4.10-5.30 Final [place] 10*6/uL 10*6/uL [facility] L ab (Internal) : [address] ? ? BLD ? Hgb 15.5 g/dL 12.0-16.0 Final Nort [place] g/dL [facility] L ab (Internal) : [address] ? ? BLD ? Hct 45.0 % 37.0-47.0 Final [facility] L ab (Internal) : [address] ? ? BLD ? Mcv 91.6 fL 80.0-96.0 Final [facility] L ab (Internal) : [address] ? ? BLD ? Mch 31.6 pg 26.0-32.0 Final [facility] L ab (Internal) : [address] ? ? BLD ? Mchc 34.4 g/dL 31.0-35.0 Final Nort [place] g/dL [facility] L ab (Internal) : [address] ? ? BLD ? Rdw 12.2 % 11.5-14.5 Final [facility] L ab (Internal) : [address] ? ? BLD ? Plt 134 130-450 Final [place] 10*3/uL 10*3/uL [facility] L ab (Internal) : [address] ? ? BLD ? Anc 3.04 ? Final [place] 10*3/uL [facility] L ab (Internal) : [address] ? ? BLD ? Neutro 57.2 % 40.0-75.0 Final [facility] L ab (Internal) : [address] ? ? BLD ? Lymph 29.4 % 20.0-50.0 Final [facility] ab (Internal) : [address] ? ? BLD High [place] 10.9 % 2.0-10.0 Final [facility] L ab (Internal) : [address] ? ? BLD ? Eos 1.3 % 1.0-6.0 % Final [facility] L ab (Internal) : [address] ? ? BLD ? Baso 0.8 % 0.0-1.0 % Final [facility] L ab (Internal) : [address] ? ? BLD ? Ig 0.4 % 0.0-0.9 % Final [facility] L ab (Internal) : [address] [facility] 12/15/2016 Venipuncture BLD ? Venpn* ? ? Final [facility]Internal[facility] : [address] [facility]2016 Triglycerides S High Trig 167 mg/dL 10-150 Fin al [place] , Serum mg/dL [facility] L ab (Internal) : [address] [facility] 12/15/2016 Glucose, S High g/r 119 mg/dL 74-106 Final N orth Serum or mg/dL [facility] L ab (Internal) : [address] [facility] 12/15/2016 HbA1C BLD ? Ha1C 5.9 % 4.0-6.0 % Final [place] (Hemoglobin Count ry a1C), Blood Hospi perla Lab (Internal) : [address] 11/15/2016 Venipuncture BLD ? Venpn* ? ? Final [facility] L ab (Internal) : [address] [facility] 11/15/2016 CMP, Serum or S High g/r 202 mg/dL 74-106 Fin al [place] Plasma mg/dL [facility] L ab (Internal) : [address] ? ? S High Bun 21 mg/dL 7-17 Final [place] mg/dL [facility] L ab (Internal) : [address] ? ? S High Crea 1.20 0.52-1.04 Final [place] mg/dL mg/dL [facility] L ab (Internal) : [address] ? ? S ? Ca 9.1 mg/dL 8.4-10.2 [facility] : [address] ? ? S ? Na 139 137-145 Final [place] mmol/L mmol/L [facility] (Internal) : [address] ? ? S ? K 3.9 3.5-5.1 Final [place] mmol/L mmol/L [facility] (Internal) : [address] ? ? S ? Cl 103 98-107 Final [place] mmol/L mmol/L [facility] (Internal) : [address] ? ? S ? Tco2 29.0 22.0-30.0 Final [place] mmol/L mmol/L [facility] (Internal) : [address] ? ? S Low Tp 6.1 g/dL 6.3-8.2 Final [place] g/dL [facility] (Internal) : [address] ? ? S ? Alb 3.9 g/dL 3.5-5.0 Final [place] g/dL [facility] (Internal) : [address] ? ? S ? Tbil 0.4 mg/dL 0.2-1.3 Final [place] mg/dL [facility] (Internal) : [address] ? ? S ? Alp 54 U/L 38-126 Final [place] U/L [facility] (Internal) : [address] ? ? S ? Alt 23 U/L 9-52 U/L Final [place] (Sgpt) [facility] (Internal) : [address] ? ? S ? Ast 18 U/L 14-36 U/L Final [place] (Sgot) [facility] (Internal) : [address] 11/15/2016 Lipid Panel, S ? Chol 177 mg/dL 50-200 Daria l [place] Serum mg/dL [facility] (Internal) : [address] ? ? S High Trig 559 mg/dL 10-150 Final [place] mg/dL [facility] (Internal) : [address] ? ? S ? Hdl 46 mg/dL 40-60 Final [place] mg/dL [facility] L ab (Internal) : [address] 11/15/2016 CBC W/ Auto BLD ? Wbc 5.8 5.0-10.0 Final [place] Diff 10*3/uL 10*3/uL [facility] : [address] ? ? BLD ? Rbc 4.77 4.10-5.30 Final [place] 10*6/uL 10*6/uL [facility] ([facility] : [address] ? ? BLD ? Hgb 15.3 g/dL 12.0-16.0 Final Nort h g/dL [facility] (Internal) : [address] ? ? BLD ? Hct 43.5 % 37.0-47.0 Final [facility] (Internal) : [address] ? ? BLD ? Mcv 91.2 fL 80.0-96.0 Final [facility] (Internal) : [address] ? ? BLD High Mch 32.1 pg 26.0-32.0 Final [place] pg [facility] (Internal) : [address] ? ? BLD High Mchc 35.2 g/dL 31.0-35.0 Final Nort h g/dL [facility] (Internal) : [address] t ? ? BLD ? Rdw 12.6 % 11.5-14.5 Final [facility] (Internal) : [address] ? ? BLD ? Plt 134 130-450 Final [place] 10*3/uL 10*3/uL [facility] (Internal) : [address] ? ? BLD ? Anc 3.35 ? Final [place] 10*3/uL [facility] (Internal) : [address] t ? ? BLD ? Neutro 57.4 % 40.0-75.0 Final [facility] (Internal) : [address] ? ? BLD ? Lymph 27.2 % 20.0-50.0 Final [facility] L ab (Internal) : [address] ? ? BLD High [place] 11.5 % 2.0-10.0 Final [facility] ab (Internal) : [address] ? ? BLD ? Eos 2.7 % 1.0-6.0 % Final [facility] ab (Internal) : [address] ? ? BLD ? Baso 0.9 % 0.0-1.0 % Final [facility] ab (Internal) : [address] ? ? BLD ? Ig 0.3 % 0.0-0.9 % Final [facility] ab (Internal) : [address] Past Encounters 10/15/2020 Diabetes Mellitus; Unintentional Weight Loss; Fatigue; Hypertensive Disorder Cristofer Reyna MD: [address] [place] [phone], Ph. 09/03/2020 Abnormal Glucose Level; Hypertensive Dis order; B-cell Chronic Lymphocytic Leukemia; Chronic Kidney Disease Stage 3; Mass of Pancreas Cristofer Reyna MD: [address] [place] [phone], Ph. 06/12/2020 Chronic Kidney Disease Stage 3; [facility] Hypertension; B-cell Chronic Lymphocytic Leukemia Cristofer Reyna MD: [address] [place] [phone], Ph. 05/22/2020 Abnormal Glucose Level; B-cell Chronic L ymphocytic Leukemia; Chronic Kidney Disease Stage 3; Essential Hypertension; Mixed Hyperlipidemia Cristofer Reyna MD: [address] [place] [phone], Ph. 12/18/2019 Adult Health Examination; Pure Hyperglyc eridemia; B-cell Chronic Lymphocytic Leukemia; Essential Hypertension; Edema of Lower Extremity Cristofer Reyna MD: [address] [place] [phone], Ph. Social History Tobacco Smoking Status Current Every Day Smoker Vaccine List Vaccine Type COVID-19, mRNA, LNP-S, PF, 100 mcg/0.5 m L dose 06/18/2020 07/15/2020 Hib, unspecified formulation 09/01/2020 influenza, high dose seasonal 01/17/2017?0.5 mL 01/08/2018?0.5 mL influenza, high-dose, quadrivalent 01/29/2020 influenza, seasonal, injectable 04/24/2015 meningococcal B, unspecified 09/01/2020 meningococcal, unspecified formulation 09/01/2020 pneumococcal conjugate PCV 13 07/23/2017 09/01/2020 pneumococcal polysaccharide PPV23 04/24/2014 Tdap 04/24/2012 zoster live 04/24/2015 zoster recombinant 01/28/2019 04/15/2019 Plan of Care Reminders Provider Appointments None ? ? recorded. Lab None ? ? recorded. Referral None ? ? recorded. Procedures None ? ? recorded. Surgeries None ? ? recorded. Imaging None ? ? recorded. Vitals 10/15/2020 11:00AM Follow Up 40 Height Weight BMI Blood Pressure 163.83 cm 86.41 kg 32.2 kg/m2 120/70 mm[Hg] 09/03/2020 01:40PM Follow Up 20 Height Weight BMI Blood Pressure 163.83 cm 94.71 kg 35.3 kg/m2 162/80 mm[Hg] 06/12/2020 10:20AM Follow Up 20 Height Weight BMI Blood Pressure 163.83 cm 95.85 kg 35.7 kg/m2 138/76 mm[Hg] 05/22/2020 02:20PM Follow Up 20 Height Weight BMI Blood Pressure 163.83 cm 96.84 kg 36.1 kg/m2 130/80 mm[Hg] 12/18/2019 12:40PM AWV 40 Weight Blood Pressure 96.33 kg 12/13/2018 12:40PM AWV 40 Height Weight BMI Blood Pressure 163.83 cm 93.98 kg 35 kg/m2 150/88 mm[Hg] 08/03/2018 01:20PM Office HUA 40 Height Weight BMI Blood Pressure 163.83 cm 93.89 kg 35 kg/m2 130/80 mm[Hg] 12/13/2017 02:20PM New Patient 30 Height Weight BMI Blood Pressure 165.1 cm 92.99 kg 34.1 kg/m2 140/80 mm[Hg] 12/12/2017 01:40PM AWV 40 Height Weight BMI Blood Pressure 165.1 cm 93.98 kg 34.5 kg/m2 (1) 143/77 mm[H g] (2) 136/77 mm[Hg ] 04/20/2017 Weight Blood Pressure 91.17 kg 130/80 mm[Hg] 02/01/2017 Blood Pressure 130/84 mm[Hg] 02/01/2017 Height Weight Blood Pressure 165.1 cm 94.35 kg 130/84 mm[Hg] 01/17/2017 Weight Blood Pressure 93.44 kg 140/82 mm[Hg] 11/15/2016 Height Weight Blood Pressure 165.1 cm 95.25 kg 138/88 mm[Hg] 05/11/2016 Height Weight Blood Pressure 163.83 cm 92.08 kg 128/70 mm[Hg]
--- OUTSIDE RECORDS SUMMARY | 2020-11-20 14:45 | XMS_ITS | Encounter Summary ---
:1940 Author Care Team Providers Name Role Phone Cristofer Reyna MD Primary Care Provider [phone] Reason for Visit pancreatitis Pancreatic cancer Assessment and Plan 1. Diabetes mellitus Reasonable control on current regimen. Home blood sugars reviewed. Continue current regimen ? OneTouch Verio test strips 2. Unintentional weight loss Protein drinks advised 3. Fatigue Labs reviewed. Likely multifac torial related to recent surgery and comorbidities 4. Hypertensive disorder Well-controlled on current reg imen. Discussion Note: None recorded.Patient educational handouts: No information available. Plan of Care Reminders Provider Appointments Follow up 11/24/2020 Tara Reyna MD 20 2:00PM ? Awv 40 01/05/2021 Cristofer renner MD 12:40PM Lab None ? ? recorded. Referral None ? ? recorded. Procedures None ? ? recorded. Surgeries None ? ? recorded. Imaging None ? ? recorded. Medications Name Start Date ? ? acetaminophen 500 mg tablet ? Take 2 tablets every 6 hours by oral route. Artificial Tears ([id number]) 1 %-0.2 %- 0.2 % eye drops ? As needed aspirin 81 mg chewable tablet ? Chew 1 tablet every day by oral route. Calcium 500 ? 1 tablet daily lancets 30 gauge ? Use once daily to check blood sugars- Uses oneTouch D elica Lantus Solostar U-100 Insulin ? start at 8 Units per night and increase by 2 units if the Am BS is >14- 2 days and a row latanoprost 0.005 % eye drops ? INSTILL 1 DROP EACH EYE ONCE A DAY lisinopril 40 mg tablet ? TAKE 1 TABLET BY MOUTH DAILY metoprolol succinate ER 50 mg tablet,extended release 24 hr ? Take 1 tablet every day by oral route. Miralax 17 gram oral powder packet ? Take 1 packet twice a day by oral route. OneTouch Verio test strips ? Take 1 strip 3 times a day by miscell. route for 90 d ays. OneTouch Verio test strips ? Use 1 strip to check blood sugar daily Pen Needle 32 gauge x ? Use once daily to inject insulin senna-docusate sodium 8.6 mg-50 mg tablet ? Take 2 tablets twice a day by oral route. triamterene 37.5 mg-hydrochlorothiazide 25 mg tablet ? TAKE 1 TABLET BY MOUTH ONCE DAILY Medications Administered None recorded. Vitals Height Weight BMI Blood Pressure 5 ft 4.5 in 190 lbs 8 oz 32.2 kg/m2 120/70 mm[Hg] Results Lab Results None recorded. Allergies Code Code System Name Reaction Severity Onset NKDA ? ? ? Problems Name Status Onset Date Source ? [...] year colonoscopy plan due to family hx Vaccine List Vaccine Type COVID-19, mRNA, LNP-S, PF, 100 mcg/0.5 m L dose 06/18/2020 07/15/2020 Hib, unspecified formulation 09/01/2020 influenza, high dose seasonal 01/17/2017?0.5 mL 01/08/2018?0.5 mL influenza, high-dose, quadrivalent 01/29/2020 influenza, seasonal, injectable 04/24/2015 meningococcal B, unspecified 09/01/2020 meningococcal, unspecified formulation 09/01/2020 pneumococcal conjugate PCV 13 07/23/2017 09/01/2020 pneumococcal polysaccharide PPV23 04/24/2014 Tdap 04/24/2012 zoster live 04/24/2015 zoster recombinant 01/28/2019 04/15/2019 Social History Tobacco Smoking Status Current Every Day Smoker Which of your hands is Right dominant? What is your level of alcohol Occasional Notes: glasses of wine consumption? rare Live alone or with others? alone Are you currently employed? N Are you blind or do you have N Notes: c orrective lenses difficulty seeing? What is your code status? 0 Language Difficulties No What was the date of your most 08/03/2018 recent tobacco screening? Are you passively exposed to N smoke? Hard of hearing or deaf in one Y Notes: some voices on tv or both ears? mumbled/ right ear What is your level of caffeine Occasional Notes: 2 coffees daily consumption? What is your exercise level? Moderate Notes: w orks around house and yard has s tairs and goes up and down them a couple times a day Family History Relation Problem Onset Age of Age Notes Father Family history of (No N/A lung cancer Information) Sister Family history of (No N/A pancreatic cancer Information) Sister Heart disease (No N/A (No Notes) Information) Brother Family history of (No N/A colon cancer Information) Brother Family history of (No N/A stomach cancer Information) Mother Heart disease (No N/A (No Notes) Information) Functional Status No Impairment. Past Encounters 10/15/2020 Diabetes Mellitus; Unintentional Weight Loss; Fatigue; Hypertensive Disorder Cristofer Reyna MD: [address] [place] [phone], Ph. History of Present Illness ? Diabetes Reported By: Patient HPI: Review finger sticks: fastin . Duration: new onset. Control: home blood sugar range high. Comp liance: compliant with medications; BS is high since she is not eating well. Pt post op and does not feel like eating. Self Care: taking as pirin daily. Associated Symptoms: no weight loss; 09/03/2020 weight was 2 08.12.8. Todays weight was 190.8 Note: <p>10/15/2020: Pt admitted to [facility] on 09/28/2020 to 10/02/2020 for Pancreatic tumor. Her operation was a difficult case. She had a malignant appearing golf ball sized mass in the distal body near the neck of the pancrease with markedly abnormal surrounding lymph nodes throughout the peripancreatic region as well as the the gypsy hepatis. She had 65% of her pancrease removed. She also had her gallbladder & spleen removed since it was abnormal. D/C home with [facility] services.</p><p>
</p><p>Has a follow up appointment with Dr. Woods, [facility] surgeon on 2020. She has dissolving stitches and glue for her wound. Pt reports it is healing well. Ptfeeling weel overall but tired. </p> Review of Systems ? Notes: <p>Review of systems as prev iously described and otherwise negative for 10 organ systems</p> Physical Exam ? Notes: <p>General: Alert. Not in ac [place] distress.
HEENT: NCAT. No Nystagmus. Pupils equal, round and reactive.<b r>Neck: Without adenopathy or thyromegaly, Trachea midline.
Cardiopulmonary: No cardiopulmonary distress
Abdomen: Soft, nondistended, nontender.
Peripheral Vascular: No edema.
Neurologic: Awake alert and oriented. Cr anial nerves II-XII intact. EOMI.
Musculoskeletal: No rmal range of motion.
Skin: Normal Moisture. Warm. Abdominal incisions cl marifer dry and intact
Lymphatic: No appreciated adenopathy
Psychiatric: A ppropriate</p>
--- OUTSIDE RECORDS SUMMARY | 2020-11-20 14:45 | XMS_ITS | Encounter Summary ---
:1940 Author Care Team Providers Name Role Phone Cristofer Reyna MD Primary Care Provider [phone] Reason for Visit Hypertensive disorder; Abnormal glucose level Assessment and Plan 1. Abnormal glucose level Diet, exercise and dietary elena idance discussed at length. 2. Hypertensive disorder Blood pressure elevated here t lyn although home blood pressure diary reviewed and noted to be reasonable. Con tinue current regimen in the setting of upcoming surgery 3. B-cell chronic lymphocytic le ukemia Labs, consultation and imaging reviewed. Appreciate oncology consultation 4. Chronic kidney disease stage 3 Labs reviewed. Encourage fluid s. We will try to achieve better blood pressure control 5. Mass of pancreas Surgical oncology consultation appreciated. Anticipate surgery in the near future Discussion Note: None recorded.Patient educational handouts: No [...] 6 hours by oral route. Artificial Tears ([id number]) 1 %-0.2 %- 0.2 % eye drops [...] BMI Blood Pressure 5 ft 4.5 in 208 lbs 12.8 oz 35.3 kg/m2 162/80 mm[Hg] Results Lab Results None recorded. Allergies [...] Performed by ? 06/10/2016 Colonoscopy Information not avai lable Notes: 5 year colonoscopy plan due to [...] Information) Functional Status No Impairment. Past Encounters 09/03/2020 Abnormal Glucose Level; Hypertensive Dis order; B-cell Chronic Lymphocytic Leukemia; Chronic Kidney Disease Stage 3; Mass of Pancreas Cristofer Reyna MD: [address] [phone], Ph. History of Present Illness ? Hypertension Reported By: Patient HPI: Quality: ; Stable. She has s ome BP to show you 140s-150s/80s. Severity: mild. Duration: has noted fo r years. Onset/Timing: ; Stable. Alleviating Factors: medication. Self Ca re: under emotional stress, checks blood pressure at home (range ), u sing an LEROY inhibitor, using a beta lon. Associated Symptoms: no palp itations, no decline in exercise capacity, shortness of breath, snoring ; SOB when she exerts self. Takes time to rest and SOB resolves Note: <p>09/03/20: Patient was seen by oncology on 08/31. Will be getting surgery on 09/28. </p&g t;<p>
</p><p>08/11/2020: Pt to get A1C prior to visit today.</p><p>Chronic Lymphocytic Leukemia in Remission.</p><p>
</p><p>06/04/2020: Pt here today to follow up with critical imaging done on 06/01/2020, finding cervical adenopathy. She also had a critical WBC of 26.1 on 05/22/2020. She has an appointment on 06/10/2020 at [facility].</p><p>BP today 138/76.</p><p>Will be getting her first covidshot on 06/18/2020.</p><p>
</p> Review of Systems ? Notes: <p>Review of systems as prev iously described and otherwise negative for 10 organ systems</p> Physical Exam ? Notes: <p>General: Alert. Not in ac [place] distress.
HEENT: NCAT. No Nystagmus. Pupils equal, round and reactive.<b r>Neck: Without adenopathy or thyromegaly, Trachea midline.
Cardiopulmonary: No cardiopulmonary distress
Abdomen: Soft, nondistended, nontender.
Peripheral Vascular: No edema.
Neurologic: Awake alert and oriented. Cr anial nerves II-XII intact. EOMI.
Musculoskeletal: No rmal range of motion.
Skin: Normal Moisture. Warm.
Lymphatic: No ap preciated adenopathy
Psychiatric: Appropriate</p>
== END 2020-11-20 14:43 | disposition home or self-care (01) ==
LOC: LBN 14:42
PROVIDERS: Visit Provider Internal Medicine Hematology & Oncology
DX: C25.9 Malignant neoplasm of pancreas, unspecified (principal)
CPT/HCPCS: 80053; 85025

== ENCOUNTER 2020-12-21 02:42 | Outpatient (RCR) | payer OTHER, SELFPAY ==
[2020-12-04] MEDS: Normal Saline Flush 10 ML SYR IVP (08:42)
[2020-12-04] MEDS: Heparin 500 UNITS/5 ML SYRINGE IV (08:42)
[2020-12-04 08:49] LABS: Abs Immature Grans 0.51 10^3/uL (0.0-0.06); Basophils % 0.1; Eosinophils % 0.5; HCT 41.4 % (36.0-46.0); HGB 13.3 g/dL (11.2-15.7); Immature Grans % 0.5; MCH 30.5 pg (27.0-33.0); MCHC 32.1 % (32.0-36.0); MPV 11.2 fL (8.0-11.0); Monocytes % 4.9; Neutrophils % 8.3; Nucleated RBC 0 %; Platelet Count 172 10^3/uL (130-400); RBC 4.36 10^6/uL (3.93-5.22); RDW 14.2 % (11.7-14.6); RDW-SD 48.3 fL
[2020-12-04 09:00] LABS: ALT 25 U/L (14-59); AST 18 U/L (15-37); Albumin 3.6 g/dL (3.4-5.0); Alkaline Phosphatase 64 U/L (46-116); Anion Gap 6.8 mmol/L (3-11); BUN 22 mg/dL (7-18); Bilirubin, Total 0.3 mg/dL (0.2-1.0); CO2 28.2 mmol/L (21.0-32.0); CREATININE 1.1 mg/dL (0.55-1.02); Calcium 8.8 mg/dL (8.5-10.1); Chloride 106 mmol/L (98-107); Estimated GFR 48.04 (mL/min/1.73m2); Glucose 252 mg/dL (74-106); Potassium 4.1 mmol/L (3.5-5.1); Sodium 141 mmol/L (136-145); Total Protein 6.2 g/dL (6.4-8.2)
[2020-12-04 09:15] LABS: Absolute Eosinophil Count 0.52 10^3/uL (0.0-0.7); Absolute Lymphocyte Count 89.57 10^3/uL (1.2-3.4); Absolute Monocyte Count 5.12 10^3/uL (0.1-0.8); Absolute Neutrophil Count 8.67 10^3/uL (1.2-6.7)
[2020-12-04 09:20] LABS: Diff Comment Agrees w/ Instrument; Polychromasia Present
[2020-12-04 09:21] LABS: Lymphocytes % 85.7
[2020-12-04 09:24] LABS: WBC 104.51 10^3/uL (4.4-10.8)
[2020-12-21] MEDS: Normal Saline Flush 10 ML SYR IVP (10:31)
[2020-12-21 10:47] LABS: HCT 41.2 % (36.0-46.0); HGB 13.3 g/dL (11.2-15.7); MCH 30.9 pg (27.0-33.0); MCHC 32.3 % (32.0-36.0); MCV 95.6 fL (80-95); MPV 11.7 fL (8.0-11.0); Nucleated RBC 0 %; Platelet Count 140 10^3/uL (130-400); RBC 4.31 10^6/uL (3.93-5.22); RDW 15.8 % (11.7-14.6)
[2020-12-21 11:06] LABS: ALT 66 U/L (14-59); AST 32 U/L (15-37); Absolute Lymphocyte Count 83.62 10^3/uL (1.2-3.4); Absolute Monocyte Count 2.88 10^3/uL (0.1-0.8); Absolute Neutrophil Count 9.61 10^3/uL (1.2-6.7); Albumin 3.6 g/dL (3.4-5.0); Alkaline Phosphatase 106 U/L (46-116); Anion Gap 12.8 mmol/L (3-11); BUN 18 mg/dL (7-18); Bilirubin, Total 0.4 mg/dL (0.2-1.0); CO2 26.2 mmol/L (21.0-32.0); CREATININE 1.3 mg/dL (0.55-1.02); Calcium 9.2 mg/dL (8.5-10.1); Chloride 103 mmol/L (98-107); Diff Comment Manual Differential; Estimated GFR 39.61 (mL/min/1.73m2); Glucose 221 mg/dL (74-106); Potassium 4.4 mmol/L (3.5-5.1); RBC Morphology Normal; Sodium 142 mmol/L (136-145); Total Protein 6.6 g/dL (6.4-8.2); WBC 96.12 10^3/uL (4.4-10.8)
== END 2020-12-22 23:59 | disposition home or self-care (01) ==
LOC: INF 02:42
PROVIDERS: Visit Provider Internal Medicine Hematology & Oncology
DX: C25.9 Malignant neoplasm of pancreas, unspecified (principal); Z45.2 Encounter for adjustment and management of vascular access device
CPT/HCPCS: 36591; 80048; 80053; 85025

== ENCOUNTER 2021-01-18 02:42 | Outpatient (RCR) | payer OTHER, SELFPAY ==
[2021-01-01] MEDS: Heparin 500 UNITS/5 ML SYRINGE IV (08:28)
[2021-01-01] MEDS: Normal Saline Flush 10 ML SYR IVP (08:28)
[2021-01-01 08:46] LABS: HCT 39.5 % (36.0-46.0); HGB 12.7 g/dL (11.2-15.7); MCH 30.5 pg (27.0-33.0); MCHC 32.2 % (32.0-36.0); MCV 94.7 fL (80-95); MPV 11.9 fL (8.0-11.0); Nucleated RBC 1 %; RBC 4.17 10^6/uL (3.93-5.22); RDW 17.2 % (11.7-14.6)
[2021-01-01 08:56] LABS: ALT 28 U/L (14-59); AST 27 U/L (15-37); Albumin 3.4 g/dL (3.4-5.0); Alkaline Phosphatase 78 U/L (46-116); Anion Gap 9.9 mmol/L (3-11); BUN 21 mg/dL (7-18); Bilirubin, Total 0.5 mg/dL (0.2-1.0); CO2 26.1 mmol/L (21.0-32.0); CREATININE 1.1 mg/dL (0.55-1.02); Calcium 9.2 mg/dL (8.5-10.1); Chloride 104 mmol/L (98-107); Estimated GFR 48.04 (mL/min/1.73m2); Glucose 179 mg/dL (74-106); LDH 317 U/L (81-234); Potassium 4.1 mmol/L (3.5-5.1); Sodium 140 mmol/L (136-145); Total Protein 6.5 g/dL (6.4-8.2)
[2021-01-01 09:06] LABS: Absolute Basophil Count 0.97 10^3/uL (0.0-0.2); Absolute Eosinophil Count 1.94 10^3/uL (0.0-0.7); Absolute Lymphocyte Count 87.08 10^3/uL (1.2-3.4); Absolute Neutrophil Count 3.87 10^3/uL (1.2-6.7); Platelet Count 97 10^3/uL (130-400); WBC 96.75 10^3/uL (4.4-10.8)
[2021-01-01 09:07] LABS: Diff Comment Manual Differential
[2021-01-01 09:08] LABS: Howell-Jolly Bodies Present; Polychromasia Present
[2021-01-06] MEDS: Normal Saline Flush 10 ML SYR IVP (07:58)
[2021-01-06 08:09] LABS: HCT 37.7 % (36.0-46.0); HGB 12.3 g/dL (11.2-15.7); MCH 31.7 pg (27.0-33.0); MCHC 32.6 % (32.0-36.0); MCV 97.2 fL (80-95); MPV 12.2 fL (8.0-11.0); Nucleated RBC 0 %; Platelet Count 85 10^3/uL (130-400); RBC 3.88 10^6/uL (3.93-5.22); RDW 17.9 % (11.7-14.6); RDW-SD 61.7 fL
[2021-01-06 08:19] LABS: ALT 27 U/L (14-59); AST 29 U/L (15-37); Albumin 3.4 g/dL (3.4-5.0); Alkaline Phosphatase 74 U/L (46-116); Anion Gap 8.2 mmol/L (3-11); BUN 19 mg/dL (7-18); Bilirubin, Total 0.5 mg/dL (0.2-1.0); CO2 26.8 mmol/L (21.0-32.0); CREATININE 1.1 mg/dL (0.55-1.02); Calcium 8.9 mg/dL (8.5-10.1); Chloride 105 mmol/L (98-107); Estimated GFR 48.04 (mL/min/1.73m2); Glucose 279 mg/dL (74-106); LDH 284 U/L (81-234); Sodium 140 mmol/L (136-145); Total Protein 6.3 g/dL (6.4-8.2); WBC 81.09 10^3/uL (4.4-10.8)
[2021-01-06 08:42] LABS: Absolute Eosinophil Count 0.81 10^3/uL (0.0-0.7); Absolute Lymphocyte Count 75.41 10^3/uL (1.2-3.4); Absolute Monocyte Count 0.81 10^3/uL (0.1-0.8); Absolute Neutrophil Count 4.05 10^3/uL (1.2-6.7); Bands % 0
[2021-01-06 08:43] LABS: Anisocytosis 1+; Diff Comment Manual Differential; Howell-Jolly Bodies Present; Polychromasia Present
[2021-01-13] MEDS: Normal Saline Flush 10 ML SYR IVP (08:08)
[2021-01-13 08:15] LABS: HCT 38.5 % (36.0-46.0); HGB 12.6 g/dL (11.2-15.7); MCH 32.2 pg (27.0-33.0); MCHC 32.7 % (32.0-36.0); MCV 98.5 fL (80-95); MPV 11.9 fL (8.0-11.0); Nucleated RBC 0 %; Platelet Count 106 10^3/uL (130-400); RBC 3.91 10^6/uL (3.93-5.22); RDW 19.5 % (11.7-14.6); RDW-SD 68.4 fL
[2021-01-13 08:27] LABS: ALT 24 U/L (14-59); AST 27 U/L (15-37); Albumin 3.4 g/dL (3.4-5.0); Alkaline Phosphatase 72 U/L (46-116); BUN 19 mg/dL (7-18); Bilirubin, Total 0.5 mg/dL (0.2-1.0); CREATININE 1.1 mg/dL (0.55-1.02); Calcium 8.6 mg/dL (8.5-10.1); Chloride 104 mmol/L (98-107); Estimated GFR 48.04 (mL/min/1.73m2); Glucose 270 mg/dL (74-106); Potassium 4.1 mmol/L (3.5-5.1); Sodium 140 mmol/L (136-145); Total Protein 6.6 g/dL (6.4-8.2)
[2021-01-13 08:30] LABS: Absolute Lymphocyte Count 70.91 10^3/uL (1.2-3.4); Absolute Monocyte Count 1.58 10^3/uL (0.1-0.8); Bands % 1; Diff Comment Manual Differential
[2021-01-13 08:31] LABS: Howell-Jolly Bodies Present
[2021-01-13 08:32] LABS: Anisocytosis 1+
[2021-01-13 10:28] LABS: WBC 78.79 10^3/uL (4.4-10.8)
== END 2021-01-21 23:59 | disposition home or self-care (01) ==
LOC: INF 02:42
PROVIDERS: Visit Provider Internal Medicine Hematology & Oncology
DX: C91.11 Chronic lymphocytic leukemia of B-cell type in remission (principal); Z45.2 Encounter for adjustment and management of vascular access device; C25.9 Malignant neoplasm of pancreas, unspecified
CPT/HCPCS: 36591; 80053; 83615; 85025

== ENCOUNTER 2021-02-15 00:49 | Outpatient (RCR) | payer MEDICARE, SELFPAY ==
[2021-01-25] MEDS: Normal Saline Flush 10 ML SYR IVP (08:58)
[2021-01-25] MEDS: Heparin 500 UNITS/5 ML SYRINGE IV (08:58)
[2021-01-25 10:05] LABS: HCT 36.8 % (36.0-46.0); HGB 12.2 g/dL (11.2-15.7); MCH 32.9 pg (27.0-33.0); MCHC 33.2 % (32.0-36.0); MCV 99.2 fL (80-95); MPV 13.5 fL (8.0-11.0); Nucleated RBC 0 %; RBC 3.71 10^6/uL (3.93-5.22); RDW 18.9 % (11.7-14.6); RDW-SD 66.3 fL
[2021-01-25 10:12] LABS: WBC 69.88 10^3/uL (4.4-10.8)
[2021-01-25 10:14] LABS: ALT 24 U/L (14-59); AST 25 U/L (15-37); Albumin 3.5 g/dL (3.4-5.0); Alkaline Phosphatase 70 U/L (46-116); Anion Gap 9.3 mmol/L (3-11); BUN 18 mg/dL (7-18); Bilirubin, Total 0.6 mg/dL (0.2-1.0); CO2 25.7 mmol/L (21.0-32.0); Chloride 103 mmol/L (98-107); Estimated GFR 53.62 (mL/min/1.73m2); Glucose 278 mg/dL (74-106); Potassium 4.1 mmol/L (3.5-5.1); Sodium 138 mmol/L (136-145); Total Protein 6.7 g/dL (6.4-8.2)
[2021-01-25 10:23] LABS: Absolute Lymphocyte Count 66.39 10^3/uL (1.2-3.4); Diff Comment Manual Differential; Platelet Count 68 10^3/uL (130-400); RBC Morphology Normal
[2021-02-02] MEDS: Normal Saline Flush 10 ML SYR IVP (08:43)
[2021-02-02 08:52] LABS: HCT 38.6 % (36.0-46.0); HGB 12.7 g/dL (11.2-15.7); MCH 33.3 pg (27.0-33.0); MCHC 32.9 % (32.0-36.0); MCV 101.3 fL (80-95); MPV 12.5 fL (8.0-11.0); Nucleated RBC 0 %; Platelet Count 120 10^3/uL (130-400); RBC 3.81 10^6/uL (3.93-5.22); RDW 20.3 % (11.7-14.6); RDW-SD 74.6 fL
[2021-02-02 09:01] LABS: ALT 25 U/L (14-59); AST 25 U/L (15-37); Albumin 3.6 g/dL (3.4-5.0); Alkaline Phosphatase 70 U/L (46-116); BUN 17 mg/dL (7-18); Bilirubin, Total 0.6 mg/dL (0.2-1.0); Calcium 9.4 mg/dL (8.5-10.1); Chloride 103 mmol/L (98-107); Estimated GFR 53.62 (mL/min/1.73m2); Glucose 240 mg/dL (74-106); Sodium 140 mmol/L (136-145); Total Protein 6.6 g/dL (6.4-8.2)
[2021-02-02 09:03] LABS: Absolute Lymphocyte Count 59.57 10^3/uL (1.2-3.4); Absolute Monocyte Count 1.25 10^3/uL (0.1-0.8); Absolute Neutrophil Count 1.88 10^3/uL (1.2-6.7)
[2021-02-02 09:04] LABS: Anisocytosis 2+; Diff Comment Manual Differential
[2021-02-15] MEDS: Normal Saline Flush 10 ML SYR IVP (09:02)
[2021-02-15] MEDS: Heparin 500 UNITS/5 ML SYRINGE IV (09:02)
[2021-02-15 09:20] LABS: HCT 37.1 % (36.0-46.0); HGB 12.4 g/dL (11.2-15.7); MCH 34.3 pg (27.0-33.0); MCHC 33.4 % (32.0-36.0); MCV 102.8 fL (80-95); MPV 12.7 fL (8.0-11.0); Platelet Count 79 10^3/uL (130-400); RBC 3.61 10^6/uL (3.93-5.22); RDW 19.3 % (11.7-14.6); RDW-SD 72.5 fL
[2021-02-15 09:40] LABS: ALT 23 U/L (14-59); AST 22 U/L (15-37); Albumin 3.5 g/dL (3.4-5.0); Alkaline Phosphatase 75 U/L (46-116); Anion Gap 10.8 mmol/L (3-11); BUN 21 mg/dL (7-18); Bilirubin, Total 0.5 mg/dL (0.2-1.0); CO2 26.2 mmol/L (21.0-32.0); CREATININE 1.1 mg/dL (0.55-1.02); Calcium 8.9 mg/dL (8.5-10.1); Chloride 102 mmol/L (98-107); Estimated GFR 48.04 (mL/min/1.73m2); Glucose 273 mg/dL (74-106); Potassium 4.1 mmol/L (3.5-5.1); Sodium 139 mmol/L (136-145); Total Protein 6.8 g/dL (6.4-8.2)
[2021-02-15 09:48] LABS: Absolute Neutrophil Count 3.28 10^3/uL (1.2-6.7); WBC 54.65 10^3/uL (4.4-10.8)
[2021-02-15 09:49] LABS: Absolute Monocyte Count 4.37 10^3/uL (0.1-0.8); Anisocytosis 1+; Diff Comment Manual Differential; Howell-Jolly Bodies Present; Macrocytosis 1+; Nucleated RBC 2 %
[2021-02-17 16:16] LABS: CA 19-9 5 U/mL (<35)
== END 2021-02-21 23:59 | disposition home or self-care (01) ==
LOC: INF 00:49
PROVIDERS: Visit Provider Internal Medicine Hematology & Oncology
DX: C25.9 Malignant neoplasm of pancreas, unspecified (principal); Z45.2 Encounter for adjustment and management of vascular access device
CPT/HCPCS: 36591; 80053; 85025; 86301

== ENCOUNTER 2021-03-23 02:06 | Outpatient (RCR) | payer MEDICARE, SELFPAY ==
[2021-02-24] MEDS: Normal Saline Flush 10 ML SYR IVP (07:34)
[2021-02-24 07:51] LABS: Abs Immature Grans 0.06 10^3/uL (0.0-0.06); HCT 37.2 % (36.0-46.0); HGB 12.4 g/dL (11.2-15.7); MCH 34.3 pg (27.0-33.0); MCHC 33.3 % (32.0-36.0); MPV 12.5 fL (8.0-11.0); Nucleated RBC 0 %; Platelet Count 120 10^3/uL (130-400); RBC 3.61 10^6/uL (3.93-5.22); RDW 18.9 % (11.7-14.6); RDW-SD 71.4 fL
[2021-02-24 08:02] LABS: ALT 26 U/L (14-59); AST 27 U/L (15-37); Albumin 3.5 g/dL (3.4-5.0); Alkaline Phosphatase 63 U/L (46-116); Anion Gap 7.2 mmol/L (3-11); BUN 17 mg/dL (7-18); Bilirubin, Total 0.6 mg/dL (0.2-1.0); CO2 28.8 mmol/L (21.0-32.0); Calcium 9.2 mg/dL (8.5-10.1); Chloride 105 mmol/L (98-107); Estimated GFR 53.62 (mL/min/1.73m2); Glucose 235 mg/dL (74-106); Potassium 3.8 mmol/L (3.5-5.1); Sodium 141 mmol/L (136-145); Total Protein 6.5 g/dL (6.4-8.2)
[2021-02-24 08:04] LABS: Absolute Lymphocyte Count 44.95 10^3/uL (1.2-3.4); Absolute Monocyte Count 2.44 10^3/uL (0.1-0.8); Absolute Neutrophil Count 1.47 10^3/uL (1.2-6.7); Bands % 1; Diff Comment Manual Differential
[2021-02-24 08:05] LABS: Anisocytosis 2+; Howell-Jolly Bodies Present; Polychromasia Present
[2021-02-24 08:10] LABS: WBC 48.86 10^3/uL (4.4-10.8)
[2021-02-27 12:12] LABS: CA 19-9 12 U/mL (<35)
[2021-03-08 08:54] LABS: HCT 35.4 % (36.0-46.0); HGB 11.9 g/dL (11.2-15.7); MCH 35.2 pg (27.0-33.0); MCHC 33.6 % (32.0-36.0); MCV 104.7 fL (80-95); MPV 12.7 fL (8.0-11.0); RBC 3.38 10^6/uL (3.93-5.22); RDW 18.3 % (11.7-14.6); RDW-SD 70.1 fL
[2021-03-08 09:06] LABS: Absolute Basophil Count 0.43 10^3/uL (0.0-0.2); Absolute Eosinophil Count 0.43 10^3/uL (0.0-0.7); Absolute Lymphocyte Count 38.12 10^3/uL (1.2-3.4); Absolute Monocyte Count 0.86 10^3/uL (0.1-0.8); Diff Comment Manual Differential; Platelet Count 92 10^3/uL (130-400); RBC Morphology Normal
[2021-03-08 09:14] LABS: Albumin 3.5 g/dL (3.4-5.0); Alkaline Phosphatase 62 U/L (46-116); Anion Gap 10.1 mmol/L (3-11); BUN 18 mg/dL (7-18); Bilirubin, Total 0.6 mg/dL (0.2-1.0); CO2 26.9 mmol/L (21.0-32.0); Chloride 106 mmol/L (98-107); Estimated GFR 53.62 (mL/min/1.73m2); Glucose 274 mg/dL (74-106); Sodium 143 mmol/L (136-145); Total Protein 6.4 g/dL (6.4-8.2)
[2021-03-08 09:15] LABS: ALT 26 U/L (14-59); AST 30 U/L (15-37); WBC 42.83 10^3/uL (4.4-10.8)
[2021-03-08] MEDS: Heparin 500 UNITS/5 ML SYRINGE IV (09:58)
[2021-03-08] MEDS: Normal Saline Flush 10 ML SYR IVP (09:58)
[2021-03-10] MEDS: Normal Saline Flush 10 ML SYR IVP (07:58)
[2021-03-10 08:20] LABS: Absolute Basophil Count 0.17 10^3/uL (0.0-0.2); Basophils % 0.4; Eosinophils % 0.4; HCT 36.6 % (36.0-46.0); HGB 12.2 g/dL (11.2-15.7); MCH 35.6 pg (27.0-33.0); MCHC 33.3 % (32.0-36.0); MCV 106.7 fL (80-95); MPV 12.8 fL (8.0-11.0); Monocytes % 6.9; Neutrophils % 3.7; Nucleated RBC 1 %; Platelet Count 95 10^3/uL (130-400); RBC 3.43 10^6/uL (3.93-5.22); RDW 18.4 % (11.7-14.6); RDW-SD 71.3 fL
[2021-03-10 09:28] LABS: Absolute Eosinophil Count 0.17 10^3/uL (0.0-0.7); Absolute Lymphocyte Count 36.55 10^3/uL (1.2-3.4); Absolute Monocyte Count 2.85 10^3/uL (0.1-0.8); Absolute Neutrophil Count 1.53 10^3/uL (1.2-6.7); WBC 41.25 10^3/uL (4.4-10.8)
[2021-03-10 09:29] LABS: Anisocytosis 1+; Diff Comment Agrees w/ Instrument; Lymphocytes % 88.6
[2021-03-10 09:30] LABS: Howell-Jolly Bodies Present; Macrocytosis 2+
[2021-03-10 10:42] LABS: CA 19-9 10 U/mL (<35)
[2021-03-23] MEDS: Normal Saline Flush 10 ML SYR IVP (09:21)
[2021-03-23 09:32] LABS: HCT 36.2 % (36.0-46.0); MCH 35.7 pg (27.0-33.0); MCHC 33.1 % (32.0-36.0); MCV 107.7 fL (80-95); MPV 12.1 fL (8.0-11.0); Platelet Count 101 10^3/uL (130-400); RBC 3.36 10^6/uL (3.93-5.22); RDW 17.6 % (11.7-14.6); RDW-SD 69.7 fL
[2021-03-23 09:37] LABS: WBC 38.38 10^3/uL (4.4-10.8)
[2021-03-23 09:48] LABS: Absolute Eosinophil Count 0.38 10^3/uL (0.0-0.7); Absolute Lymphocyte Count 36.46 10^3/uL (1.2-3.4); Absolute Monocyte Count 0.77 10^3/uL (0.1-0.8); Absolute Neutrophil Count 0.77 10^3/uL (1.2-6.7); Atypical Lymphocytes % 0; Bands % 0; Nucleated RBC 0 %
[2021-03-23 09:49] LABS: Anisocytosis 1+; Diff Comment Manual Differential; Macrocytosis 1+
[2021-03-23 09:50] LABS: Howell-Jolly Bodies Present
[2021-03-23 09:51] LABS: ALT 29 U/L (14-59); AST 29 U/L (15-37); Albumin 3.3 g/dL (3.4-5.0); Alkaline Phosphatase 70 U/L (46-116); Anion Gap 8.7 mmol/L (3-11); BUN 18 mg/dL (7-18); Bilirubin, Total 0.6 mg/dL (0.2-1.0); CO2 27.3 mmol/L (21.0-32.0); Calcium 8.6 mg/dL (8.5-10.1); Chloride 105 mmol/L (98-107); Estimated GFR 53.62 (mL/min/1.73m2); Glucose 271 mg/dL (74-106); Potassium 3.8 mmol/L (3.5-5.1); Sodium 141 mmol/L (136-145); Total Protein 6.3 g/dL (6.4-8.2)
[2021-03-24 11:43] LABS: CA 19-9 13 U/mL (<35)
== END 2021-03-23 23:59 | disposition home or self-care (01) ==
LOC: INF 02:06
PROVIDERS: Visit Provider Internal Medicine Hematology & Oncology
DX: C25.9 Malignant neoplasm of pancreas, unspecified (principal); Z45.2 Encounter for adjustment and management of vascular access device
CPT/HCPCS: 36591; 80053; 85025; 86301

== ENCOUNTER 2021-04-13 01:16 | Outpatient (RCR) | payer MEDICARE, SELFPAY ==
[2021-03-31] MEDS: Normal Saline Flush 10 ML SYR IVP (10:11)
[2021-03-31 10:34] LABS: Absolute Basophil Count 0.11 10^3/uL (0.0-0.2); Basophils % 0.3; HCT 39.9 % (36.0-46.0); HGB 13.1 g/dL (11.2-15.7); MCH 35.7 pg (27.0-33.0); MCHC 32.8 % (32.0-36.0); MCV 108.7 fL (80-95); MPV 12.1 fL (8.0-11.0); Nucleated RBC 0 %; Platelet Count 159 10^3/uL (130-400); RBC 3.67 10^6/uL (3.93-5.22); RDW 17.2 % (11.7-14.6); RDW-SD 68.8 fL
[2021-03-31 10:41] LABS: WBC 37.76 10^3/uL (4.4-10.8)
[2021-03-31 10:46] LABS: ALT 26 U/L (14-59); AST 29 U/L (15-37); Albumin 3.6 g/dL (3.4-5.0); Alkaline Phosphatase 77 U/L (46-116); Anion Gap 9.7 mmol/L (3-11); BUN 23 mg/dL (7-18); Bilirubin, Total 0.6 mg/dL (0.2-1.0); CO2 26.3 mmol/L (21.0-32.0); CREATININE 0.9 mg/dL (0.55-1.02); Calcium 8.9 mg/dL (8.5-10.1); Chloride 103 mmol/L (98-107); Glucose 251 mg/dL (74-106); Potassium 3.9 mmol/L (3.5-5.1); Sodium 139 mmol/L (136-145); Total Protein 6.7 g/dL (6.4-8.2)
[2021-03-31 10:56] LABS: Absolute Lymphocyte Count 35.49 10^3/uL (1.2-3.4); Absolute Monocyte Count 1.51 10^3/uL (0.1-0.8); Absolute Neutrophil Count 0.38 10^3/uL (1.2-6.7); Atypical Lymphocytes % 0; Bands % 1
[2021-03-31 10:57] LABS: Absolute Eosinophil Count 0.38 10^3/uL (0.0-0.7); Anisocytosis 1+; Diff Comment Manual Differential; Macrocytosis 1+
[2021-04-02 10:14] LABS: CA 19-9 9 U/mL (<35)
[2021-04-07] MEDS: Normal Saline Flush 10 ML SYR IVP (07:51)
[2021-04-07] MEDS: Heparin 500 UNITS/5 ML SYRINGE IV (07:51)
[2021-04-07 08:19] LABS: HCT 39.6 % (36.0-46.0); HGB 13.2 g/dL (11.2-15.7); MCH 36.2 pg (27.0-33.0); MCHC 33.3 % (32.0-36.0); MCV 108.5 fL (80-95); MPV 12.2 fL (8.0-11.0); Nucleated RBC 0 %; Platelet Count 145 10^3/uL (130-400); RBC 3.65 10^6/uL (3.93-5.22); RDW 15.9 % (11.7-14.6); RDW-SD 63.8 fL
[2021-04-07 08:32] LABS: Absolute Eosinophil Count 1.42 10^3/uL (0.0-0.7); Absolute Lymphocyte Count 21.59 10^3/uL (1.2-3.4); Absolute Monocyte Count 10.27 10^3/uL (0.1-0.8); Absolute Neutrophil Count 2.12 10^3/uL (1.2-6.7); Atypical Lymphocytes % 32
[2021-04-07 08:33] LABS: Diff Comment Manual Differential; Macrocytosis 2+
[2021-04-07 09:08] LABS: ALT 27 U/L (14-59); AST 27 U/L (15-37); Albumin 3.7 g/dL (3.4-5.0); Alkaline Phosphatase 72 U/L (46-116); Anion Gap 7.4 mmol/L (3-11); BUN 18 mg/dL (7-18); Bilirubin, Total 0.6 mg/dL (0.2-1.0); CO2 28.6 mmol/L (21.0-32.0); CREATININE 0.9 mg/dL (0.55-1.02); Calcium 9.1 mg/dL (8.5-10.1); Chloride 105 mmol/L (98-107); Glucose 162 mg/dL (74-106); LDH 298 U/L (81-234); Potassium 3.8 mmol/L (3.5-5.1); Sodium 141 mmol/L (136-145); Total Protein 6.9 g/dL (6.4-8.2)
[2021-04-13] MEDS: Normal Saline Flush 10 ML SYR IVP (07:45)
[2021-04-13 08:05] LABS: Abs Immature Grans 0.05 10^3/uL (0.0-0.06); Absolute Lymphocyte Count 29.56 10^3/uL (1.2-3.4); Basophils % 0.5; Eosinophils % 0.5; HCT 40.5 % (36.0-46.0); HGB 13.7 g/dL (11.2-15.7); Immature Grans % 0.1; MCH 36.1 pg (27.0-33.0); MCHC 33.8 % (32.0-36.0); MCV 106.9 fL (80-95); MPV 12.1 fL (8.0-11.0); Neutrophils % 6.9; Nucleated RBC 0 %; RBC 3.79 10^6/uL (3.93-5.22); RDW 15.3 % (11.7-14.6); RDW-SD 60.6 fL
[2021-04-13 08:13] LABS: Absolute Basophil Count 0.17 10^3/uL (0.0-0.2); Absolute Eosinophil Count 0.17 10^3/uL (0.0-0.7); Absolute Monocyte Count 2.43 10^3/uL (0.1-0.8)
[2021-04-13 08:19] LABS: ALT 35 U/L (14-59); AST 37 U/L (15-37); Albumin 3.6 g/dL (3.4-5.0); Alkaline Phosphatase 73 U/L (46-116); Anion Gap 9.2 mmol/L (3-11); BUN 19 mg/dL (7-18); Bilirubin, Total 0.7 mg/dL (0.2-1.0); CO2 25.8 mmol/L (21.0-32.0); CREATININE 0.9 mg/dL (0.55-1.02); Calcium 9.1 mg/dL (8.5-10.1); Chloride 106 mmol/L (98-107); Glucose 148 mg/dL (74-106); LDH 268 U/L (81-234); Potassium 3.7 mmol/L (3.5-5.1); Sodium 141 mmol/L (136-145); Total Protein 6.5 g/dL (6.4-8.2)
[2021-04-13 08:28] LABS: Diff Comment Agrees w/ Instrument; Platelet Count 149 10^3/uL (130-400)
[2021-04-13 08:29] LABS: Macrocytosis 2+; Polychromasia Present
[2021-04-13 08:31] LABS: WBC 34.78 10^3/uL (4.4-10.8)
== END 2021-04-23 23:59 | disposition home or self-care (01) ==
LOC: INF 01:16
PROVIDERS: Internal Medicine Hematology & Oncology; Visit Provider Internal Medicine Hematology & Oncology
DX: C25.9 Malignant neoplasm of pancreas, unspecified (principal); Z45.2 Encounter for adjustment and management of vascular access device; C91.11 Chronic lymphocytic leukemia of B-cell type in remission
CPT/HCPCS: 36591; 80053; 83615; 85025; 86301

== ENCOUNTER 2021-05-24 01:14 | Outpatient (RCR) | payer OTHER, SELFPAY ==
[2021-04-26] MEDS: Heparin 500 UNITS/5 ML SYRINGE IV (09:06)
[2021-04-26] MEDS: Normal Saline Flush 10 ML SYR IVP (09:07)
[2021-04-26 09:30] LABS: MCH 36.2 pg (27.0-33.0); MCHC 34.1 % (32.0-36.0); MCV 105.9 fL (80-95); MPV 11.3 fL (8.0-11.0); Nucleated RBC 0 %; Platelet Count 128 10^3/uL (130-400); RBC 3.87 10^6/uL (3.93-5.22); RDW 15.3 % (11.7-14.6); RDW-SD 59.6 fL
[2021-04-26 09:40] LABS: WBC 42.43 10^3/uL (4.4-10.8)
[2021-04-26 09:46] LABS: Absolute Lymphocyte Count 32.25 10^3/uL (1.2-3.4); Absolute Monocyte Count 1.27 10^3/uL (0.1-0.8); Absolute Neutrophil Count 7.21 10^3/uL (1.2-6.7); Atypical Lymphocytes % 63; Bands % 4; Diff Comment Manual Differential; Macrocytosis 2+
[2021-04-26 09:50] LABS: ALT 29 U/L (14-59); AST 30 U/L (15-37); Albumin 3.5 g/dL (3.4-5.0); Alkaline Phosphatase 115 U/L (46-116); Anion Gap 10.6 mmol/L (3-11); BUN 23 mg/dL (7-18); Bilirubin, Total 0.7 mg/dL (0.2-1.0); CO2 26.4 mmol/L (21.0-32.0); Chloride 103 mmol/L (98-107); Estimated GFR 53.62 (mL/min/1.73m2); Glucose 275 mg/dL (74-106); LDH 322 U/L (81-234); Potassium 4.3 mmol/L (3.5-5.1); Sodium 140 mmol/L (136-145); Total Protein 6.8 g/dL (6.4-8.2)
[2021-04-28 10:11] LABS: CA 19-9 12 U/mL (<35)
[2021-05-12] MEDS: Normal Saline Flush 10 ML SYR IVP (08:16)
[2021-05-12 08:22] LABS: Abs Immature Grans 0.93 10^3/uL (0.0-0.06); HCT 39.9 % (36.0-46.0); HGB 13.3 g/dL (11.2-15.7); MCH 36.2 pg (27.0-33.0); MCHC 33.3 % (32.0-36.0); MCV 108.7 fL (80-95); MPV 11.7 fL (8.0-11.0); Nucleated RBC 1 %; RBC 3.67 10^6/uL (3.93-5.22); RDW 15.7 % (11.7-14.6); RDW-SD 61.9 fL
[2021-05-12 08:34] LABS: WBC 47.48 10^3/uL (4.4-10.8)
[2021-05-12 08:36] LABS: ALT 29 U/L (14-59); AST 31 U/L (15-37); Albumin 3.5 g/dL (3.4-5.0); Alkaline Phosphatase 133 U/L (46-116); Anion Gap 10.3 mmol/L (3-11); BUN 19 mg/dL (7-18); Bilirubin, Total 0.5 mg/dL (0.2-1.0); CO2 23.7 mmol/L (21.0-32.0); Chloride 103 mmol/L (98-107); Estimated GFR 53.62 (mL/min/1.73m2); Glucose 286 mg/dL (74-106); Potassium 3.9 mmol/L (3.5-5.1); Sodium 137 mmol/L (136-145); Total Protein 6.5 g/dL (6.4-8.2)
[2021-05-12 08:41] LABS: Absolute Eosinophil Count 0.47 10^3/uL (0.0-0.7); Absolute Lymphocyte Count 33.71 10^3/uL (1.2-3.4); Absolute Monocyte Count 6.17 10^3/uL (0.1-0.8); Absolute Neutrophil Count 6.65 10^3/uL (1.2-6.7); Bands % 2; Platelet Count 142 10^3/uL (130-400)
[2021-05-12 08:42] LABS: Diff Comment Manual Differential; Macrocytosis 2+; Metamyelocytes % 1; Polychromasia Present
[2021-05-12 08:43] LABS: Poikilocytes 1+
[2021-05-14 11:58] LABS: CA 19-9 8 U/mL (<35)
[2021-05-24] MEDS: Heparin 500 UNITS/5 ML SYRINGE IV (12:38)
[2021-05-24] MEDS: Normal Saline Flush 10 ML SYR IVP (12:38)
[2021-05-24 12:57] LABS: HCT 38.3 % (36.0-46.0); HGB 12.8 g/dL (11.2-15.7); MCH 35.5 pg (27.0-33.0); MCHC 33.4 % (32.0-36.0); MCV 106.1 fL (80-95); MPV 12.9 fL (8.0-11.0); Nucleated RBC 1 %; Platelet Count 139 10^3/uL (130-400); RBC 3.61 10^6/uL (3.93-5.22); RDW 16.1 % (11.7-14.6); RDW-SD 61.8 fL
[2021-05-24 13:18] LABS: ALT 33 U/L (14-59); AST 43 U/L (15-37); Absolute Lymphocyte Count 39.09 10^3/uL (1.2-3.4); Absolute Monocyte Count 1.02 10^3/uL (0.1-0.8); Absolute Neutrophil Count 10.66 10^3/uL (1.2-6.7); Albumin 3.5 g/dL (3.4-5.0); Alkaline Phosphatase 172 U/L (46-116); Anion Gap 9.8 mmol/L (3-11); BUN 19 mg/dL (7-18); Bands % 1; Bilirubin, Total 0.6 mg/dL (0.2-1.0); CO2 26.2 mmol/L (21.0-32.0); Calcium 9.2 mg/dL (8.5-10.1); Chloride 102 mmol/L (98-107); Estimated GFR 53.62 (mL/min/1.73m2); Glucose 251 mg/dL (74-106); Potassium 3.9 mmol/L (3.5-5.1); Sodium 138 mmol/L (136-145); Total Protein 6.8 g/dL (6.4-8.2)
[2021-05-24 13:19] LABS: Anisocytosis 1+; Diff Comment Manual Differential; Howell-Jolly Bodies Present; Macrocytosis 1+; Polychromasia Present
[2021-05-24 13:20] LABS: WBC 50.76 10^3/uL (4.4-10.8)
[2021-05-26 10:20] LABS: CA 19-9 <2 U/mL (<35)
== END 2021-05-24 23:59 | disposition home or self-care (01) ==
LOC: INF 01:14
PROVIDERS: Visit Provider Internal Medicine Hematology & Oncology
DX: C25.9 Malignant neoplasm of pancreas, unspecified (principal); Z45.2 Encounter for adjustment and management of vascular access device
CPT/HCPCS: 36591; 80053; 83615; 85025; 86301

== ENCOUNTER 2021-06-18 03:24 | Outpatient (RCR) | payer OTHER, SELFPAY ==
[2021-06-07] MEDS: Normal Saline Flush 10 ML SYR IVP (09:47)
[2021-06-07 09:56] LABS: HCT 38.8 % (36.0-46.0); HGB 12.9 g/dL (11.2-15.7); MCH 35.3 pg (27.0-33.0); MCHC 33.2 % (32.0-36.0); MCV 106.3 fL (80-95); MPV 12.1 fL (8.0-11.0); Nucleated RBC 0 %; Platelet Count 145 10^3/uL (130-400); RBC 3.65 10^6/uL (3.93-5.22)
[2021-06-07 10:10] LABS: ALT 36 U/L (14-59); AST 35 U/L (15-37); Albumin 3.7 g/dL (3.4-5.0); Alkaline Phosphatase 103 U/L (46-116); Anion Gap 8.2 mmol/L (3-11); BUN 16 mg/dL (7-18); Bilirubin, Total 0.7 mg/dL (0.2-1.0); CO2 25.8 mmol/L (21.0-32.0); CREATININE 0.9 mg/dL (0.55-1.02); Calcium 9.1 mg/dL (8.5-10.1); Chloride 103 mmol/L (98-107); Glucose 260 mg/dL (74-106); Potassium 4.2 mmol/L (3.5-5.1); Sodium 137 mmol/L (136-145); Total Protein 6.7 g/dL (6.4-8.2)
[2021-06-07 10:23] LABS: Absolute Monocyte Count 0.95 10^3/uL (0.1-0.8); Absolute Neutrophil Count 1.26 10^3/uL (1.2-6.7); Atypical Lymphocytes % 5; Diff Comment Manual Differential; RBC Morphology Normal
[2021-06-09 12:21] LABS: CA 19-9 10 U/mL (<35)
== END 2021-06-21 23:59 | disposition home or self-care (01) ==
LOC: INF 03:24
PROVIDERS: Visit Provider Internal Medicine Hematology & Oncology
DX: C25.9 Malignant neoplasm of pancreas, unspecified (principal); Z45.2 Encounter for adjustment and management of vascular access device
CPT/HCPCS: 36591; 80053; 85025; 86301

== ENCOUNTER 2021-07-16 02:58 | Outpatient (RCR) | payer OTHER, SELFPAY ==
[2021-06-25] MEDS: Normal Saline Flush 10 ML SYR IVP (12:01)
[2021-06-25 12:25] LABS: ALT 34 U/L (14-59); AST 27 U/L (15-37); Albumin 3.5 g/dL (3.4-5.0); Alkaline Phosphatase 128 U/L (46-116); Anion Gap 9.1 mmol/L (3-11); BUN 14 mg/dL (7-18); Bilirubin, Total 0.5 mg/dL (0.2-1.0); CO2 26.9 mmol/L (21.0-32.0); Chloride 105 mmol/L (98-107); Estimated GFR 53.62 (mL/min/1.73m2); Glucose 166 mg/dL (74-106); Potassium 4.1 mmol/L (3.5-5.1); Sodium 141 mmol/L (136-145); Total Protein 6.4 g/dL (6.4-8.2)
[2021-07-16] MEDS: Normal Saline Flush 10 ML SYR IVP (12:02)
[2021-07-16 12:29] LABS: ALT 30 U/L (14-59); AST 27 U/L (15-37); Albumin 3.6 g/dL (3.4-5.0); Alkaline Phosphatase 92 U/L (46-116); Anion Gap 8.2 mmol/L (3-11); BUN 24 mg/dL (7-18); Bilirubin, Total 0.6 mg/dL (0.2-1.0); CO2 26.8 mmol/L (21.0-32.0); CREATININE 1.1 mg/dL (0.55-1.02); Calcium 8.6 mg/dL (8.5-10.1); Chloride 105 mmol/L (98-107); Estimated GFR 47.91 (mL/min/1.73m2); Glucose 229 mg/dL (74-106); Sodium 140 mmol/L (136-145); Total Protein 6.5 g/dL (6.4-8.2)
== END 2021-07-22 23:59 | disposition home or self-care (01) ==
LOC: INF 02:58
PROVIDERS: Internal Medicine Hematology & Oncology; Visit Provider Internal Medicine Hematology & Oncology
DX: D49.0 Neoplasm of unspecified behavior of digestive system (principal); C91.11 Chronic lymphocytic leukemia of B-cell type in remission; Z45.2 Encounter for adjustment and management of vascular access device
CPT/HCPCS: 36591; 80053

== ENCOUNTER 2021-08-11 10:00 | Outpatient (RCR) | payer SELFPAY ==
[2021-08-11] MEDS: Normal Saline Flush 10 ML SYR IVP (10:09)
[2021-08-11 10:19] LABS: Abs Immature Grans 0.05 10^3/uL (0.0-0.06); HCT 41.2 % (36.0-46.0); HGB 13.8 g/dL (11.2-15.7); MCH 34.2 pg (27.0-33.0); MCHC 33.5 % (32.0-36.0); Platelet Count 193 10^3/uL (130-400); RBC 4.04 10^6/uL (3.93-5.22); RDW 13.1 % (11.7-14.6); RDW-SD 49.5 fL
[2021-08-11 10:35] LABS: ALT 26 U/L (14-59); AST 21 U/L (15-37); Albumin 3.5 g/dL (3.4-5.0); Alkaline Phosphatase 82 U/L (46-116); Anion Gap 6.9 mmol/L (3-11); BUN 23 mg/dL (7-18); Bilirubin, Total 0.4 mg/dL (0.2-1.0); CO2 28.1 mmol/L (21.0-32.0); CREATININE 1.2 mg/dL (0.55-1.02); Calcium 8.8 mg/dL (8.5-10.1); Chloride 103 mmol/L (98-107); Estimated GFR 43.34 (mL/min/1.73m2); Glucose 196 mg/dL (74-106); LDH 213 U/L (81-234); Potassium 4.4 mmol/L (3.5-5.1); Sodium 138 mmol/L (136-145); Total Protein 6.8 g/dL (6.4-8.2)
[2021-08-11 10:42] LABS: Absolute Lymphocyte Count 24.66 10^3/uL (1.2-3.4); Absolute Monocyte Count 0.29 10^3/uL (0.1-0.8); Atypical Lymphocytes % 5; Bands % 0
[2021-08-11 10:49] LABS: WBC 29.36 10^3/uL (4.4-10.8)
[2021-08-11 10:50] LABS: Diff Comment Manual Differential; RBC Morphology Normal
== END 2021-08-21 23:59 | disposition home or self-care (01) ==
LOC: INF 10:00
PROVIDERS: Internal Medicine Hematology & Oncology; PCP Family Medicine; Visit Provider Internal Medicine Hematology & Oncology
DX: D49.0 Neoplasm of unspecified behavior of digestive system (principal); C91.11 Chronic lymphocytic leukemia of B-cell type in remission; Z45.2 Encounter for adjustment and management of vascular access device
CPT/HCPCS: 36591; 80053; 83615; 85025

== ENCOUNTER 2022-07-13 02:39 | Outpatient (RCR) | payer OTHER, SELFPAY ==
[2022-07-13] MEDS: Normal Saline Flush 10 ML SYR IVP (09:56)
[2022-07-15 09:43] LABS: CA 19-9 16 U/mL (<35)
== END 2022-07-22 23:59 | disposition home or self-care (01) ==
LOC: INF 02:39
PROVIDERS: PCP Family Medicine; Visit Provider Internal Medicine Hematology & Oncology
DX: C25.0 Malignant neoplasm of head of pancreas (principal); Z45.2 Encounter for adjustment and management of vascular access device
CPT/HCPCS: 36591; 86301

== ENCOUNTER 2022-08-10 11:23 | Outpatient (RCR) | payer OTHER, SELFPAY ==
[2022-08-10] MEDS: Normal Saline Flush 10 ML SYR IVP (11:40)
[2022-08-10 11:56] LABS: HCT 45.8 % (36.0-46.0); HGB 11.1 g/dL (11.2-15.7); MCH 25.5 pg (27.0-33.0); MCHC 24.2 % (32.0-36.0); MCV 105 fL (80-95); MPV 11.3 fL (8.0-11.0); Platelet Count 216 10^3/uL (130-400); RBC 4.35 10^6/uL (3.93-5.22)
[2022-08-10 12:09] LABS: Absolute Neutrophil Count 14.59 10^3/uL (1.2-6.7)
[2022-08-10 12:11] LABS: Anisocytosis 3+; Diff Comment Manual Differential; Hypochromasia 2+; Macrocytosis 2+
[2022-08-10 12:23] LABS: ALT 24 U/L (14-59); AST 16 U/L (15-37); Albumin 3.8 g/dL (3.4-5.0); Alkaline Phosphatase 83 U/L (46-116); Anion Gap 10.4 mmol/L (3-11); BUN 29 mg/dL (7-18); Bilirubin, Total 0.3 mg/dL (0.2-1.0); CO2 25.6 mmol/L (21.0-32.0); CREATININE 1.3 mg/dL (0.55-1.02); Calcium 9.4 mg/dL (8.5-10.1); Chloride 103 mmol/L (98-107); Estimated GFR 41.57 (mL/min/1.73m2); Glucose 191 mg/dL (74-106); Potassium 4.2 mmol/L (3.5-5.1); Sodium 139 mmol/L (136-145); Total Protein 7.1 g/dL (6.4-8.2)
[2022-08-11 10:07] LABS: IgA 34 mg/dL (85-499); IgG 417 mg/dL (610-1616); IgM <12 mg/dL (35-242)
== END 2022-08-21 23:59 | disposition home or self-care (01) ==
LOC: INF 11:23
PROVIDERS: Internal Medicine Hematology & Oncology; PCP Family Medicine; Visit Provider Internal Medicine Hematology & Oncology
DX: D80.1 Nonfamilial hypogammaglobulinemia (principal); Z45.2 Encounter for adjustment and management of vascular access device
CPT/HCPCS: 36591; 80053; 82784; 85025